=== PATIENT | male | born 1995 ===

== ENCOUNTER 2018-07-20 03:44 | Emergency (ER) | payer BC ==
[~2018-07-20] VITALS: Ht 175.3 cm; Wt 70.8 kg
[~2018-07-20 03:44] MED LIST: AZIT-21 PO; HYDR-229 PO; LEVO500T69 PO; ONDA-42 PO
--- OUTSIDE RECORDS SUMMARY | 2018-07-20 03:47 | XMS REPORT ---
Author Author NANCY DEL VALLE [facility] Address [address] [place] [address] Care Team Providers Care Cell Tower Climber Name Role Phone NANCY DEL VALLE Unavailable PROBLEMS Type Condition ICD9-CM Code ORU21-WY Code Onset Dates Condition Status SNOMED Code Problem Seasonal allergies J30.2 Active 143885304 Problem Mild intermittent asthma without complication J45.20 Active 569024688 Problem Generalized anxiety disorder F41.1 Active 68706071 Problem Major depressive disorder, recurrent episode, severe F33.2 Active 681529543882 Problem Self-mutilation Z72.89 Active 560178242 Problem Constipation, unspecified constipation type K59.00 Active 03559733 ALLERGIES No Known Allergies ENCOUNTERS Encounter Location Date Diagnosis [place] [address] [address] Jul, Mild intermittent asthma without complication J45.20 [facility] [address] [address] Jun, Seasonal allergies J30.2 and Costochondritis M94.0 [place] [address] [address] Mar, Oriana infection B37.9 [place] [address] [address] Apr, Dermatitis L30.9 and Mild intermittent asthma without complication J45.20 [place] [address] [address] May, Scabies B86 [facility] [address] [address] Apr, Constipation, unspecified constipation type K59.00 [facility] [address], [place] [address] Apr, Self-mutilation Z72.89 ; Constipation, unspecified constipation type K59.00 ; Major depressive disorder, recurrent episode, severe F33.2 and Generalized anxiety disorder F41.1 [facility] [address] [address] Dec, Major depressive disorder, recurrent episode, severe F33.2 and Generalized anxiety disorder F41.1 [facility] [address] [address] February, [facility] [address] [place] [id number] [place] [address] February, [facility] [address], [place] [address] Jan, [facility] [address] [place] [id number] [place] [address] Jan, [facility] [address] [address] Nov, [facility] [address] [address] Nov, [facility] [address] [address] Nov, [facility] [address] [address] Nov, [facility] [address], [place] [address] Oct, [facility] [address], [place] [address] Oct, [facility] [address], [place] [address] Oct, [facility] [id number] [place] [address] Oct, [facility] [place] [facility] [address] [id number] [place] [address] Aug, [facility] [place] [facility] [address] [id number] [place] [address] Aug, [facility] [place] [facility] [address] [id number] [place] [address] Aug, [facility] [place] [facility] [address] [id number] [place] [address] Aug, [facility] [place] [facility] [address] [id number] [place] [address] Jun, [facility] [place] [facility] [address] [id number] [place] [address] Jun, [facility] [place] [facility] [address] [id number] [place] [address] Apr, [facility] [place] [facility] [address] [id number] [place] [address] 49[address] Apr, [facility] [place] [facility] [address] [id number] [place] [address] Apr, [facility] [place] [facility] [address] [id number] [place] [address]- 24[address] Apr, [facility] [place] [facility] [address] [id number] [place] [address] Mar, [facility] [place] [facility] [address] [id number] [place] [address] Mar, [facility] [place] [facility] [address] [id number] [place] [address] Mar, [facility] [place] [facility] [address] [id number] [place] [address]- 18[address] Mar, [facility] [place] [facility] [address] [id number] [place] [address] Mar, [facility] [place] [facility] [address] [id number] [place] [address] 8[address] Mar, [facility] [address] [id number] [place] [address] 27[address] Mar, [facility] [place] [facility] [address] [id number] [place] [address] 98[address] Mar, [facility] [place] [facility] [address] [id number] [place] [address]- 1566 Jan, [facility] [place] [facility] [address] [id number] [place] [address]- 7269 Jan, [facility] [place] [facility] [address] [id number] [place] [address] Jan, [facility] [place] [facility] [address] [id number] [place] [address]- 22[address] Jan, [facility] [place] [facility] [address] [id number] [place] [address]- [address] Jan, [facility] [place] [facility] [address] [id number] [place] [address]- [address] Jan, [facility] [place] [facility] [address] [id number] [place] [address]- 24[address] Dec, [facility] [place] [facility] [address] [facility] [id number] [place] [address]- 98[address] Dec, [facility] [place] [facility] [address] [id number] [place] [address]- 78[address] Nov, [facility] [place] [facility] [address] [id number] [place] [address]- 7[address] Nov, [facility] [place] [facility] [address] [id number] [place] [address]- 7796 Nov, [facility] [place] [facility] [address] [facility] [id number] [place] [address]- 4[address] Nov, [facility] [place] [facility] [address] [id number] [place] [address]- 275[address] Nov, [facility] [place] [facility] [address] [id number] [place] [address]- 5607 Nov, [facility] [place] [facility] [address] [id number] [place] [address]- 1046 Oct, [facility] [place] [facility] [address] [id number] [place] [address]- 6[address] Oct, [facility] [place] [facility] [address] [id number] [place] [address]- 5[address] Oct, [facility] [place] [facility] [address] [id number] [place] [address]- 1675 Oct, [facility] [place] [facility] [address] [id number] [place] [address]- 0144 Aug, [facility] [place] [facility] [address] [id number] [place] [address]- 2420 Aug, [facility] [place] [facility] [address] [id number] [address]- [address] Jul, [facility] [place] [facility] [address] [id number] [place] [address]- 23[address] Jul, [facility] [place] [facility] [address] [id number] [place] [address]- 5[address] Jul, [facility] [place] [facility] [address] [id number], [place] [address]- [address] Jun, [facility] [place] [facility] [address] [id number], [place] [address]- [address] 30 Jun, 2013 [facility] [place] [facility] [address] [id number] [place] [address] 25[address] Jan, [facility] [place] [facility] [address] [id number], [place] [address]- [address] Dec, [facility] [place] [facility] [address] [id number] [place] [address]45 Sep, [facility] [place] [facility] [address] [facility] [id number] [place] [address]- 76[address] Aug, [facility] [address] [facility] [id number], [place] [address]- 8[address] Aug, [facility] [address] [facility] [id number], [place] [address]- [address] Sep, [facility] [address] [facility] [id number], [place] [address]- [address] Aug, IMMUNIZATIONS No Known Immunizations SOCIAL HISTORY Never Assessed REASON FOR VISIT congestion-chest congestion, head congestion and stuffy nose x 2 weeks.--MIKAYLA Mejia PLAN OF CARE Activity Details Follow Up prn Reason: VITAL SIGNS Height 70 in 2018-06-25 Weight 152 lbs 2018-06-25 Temperature 98.7 degrees Fahrenheit 2018-06-25 Heart Rate 88 bpm 2018-06-25 Respiratory Rate 20 2018-06-25 BMI 21.81 kg/m2 2018-06-25 Blood pressure systolic 106 mmHg 2018-06-25 Blood pressure diastolic 78 mmHg 2018-06-25 MEDICATIONS Medication Instructions Dosage Frequency Start Date End Date Duration Status Alprazolam 0.25 MG TAKE ONE TABLET BY MOUTH THREE TIMES DAILY NEEDED FOR ANXIETY 30 Active Seroquel 50 MG Orally Once a day 1 tablet at bedtime 24h Active RESULTS No Results PROCEDURES No Known procedures INSTRUCTIONS MEDICATIONS ADMINISTERED No Known Medications MEDICAL (GENERAL) HISTORY Type Description Date Medical History anxiety Surgical History appendectomy Hospitalization History surgeries Hospitalization History breathing difficulties
--- OUTSIDE RECORDS SUMMARY | 2018-07-20 03:48 | XMS REPORT ---
Author Author PILAR CASTILLO Organization [facility] Address [address] [place] [address] Care Team Providers Care Sheeter Machine Operator Name Role Phone PILAR CASTILLO Unavailable PROBLEMS Type Condition ICD9-CM Code RSR59-ND Code Onset Dates Condition Status SNOMED Code Problem Mild intermittent asthma without complication J45.20 Active 087702236 Problem Self-mutilation Z72.89 Active 525614651 Problem Major depressive disorder, recurrent episode, severe F33.2 Active 052846005580 Problem Constipation, unspecified constipation type K59.00 Active 44232695 Problem Generalized anxiety disorder F41.1 Active 16812345 ALLERGIES No Known Allergies ENCOUNTERS Encounter Location Date Diagnosis [place] [address] [address] Mar, Oriana infection B37.9 [place] [address] [address] Apr, Dermatitis L30.9 and Mild intermittent asthma without complication J45.20 [place] [address] [place] [id number] [place] [address] May, Scabies B86 [place] [address] [place] [id number] [place] [address] Apr, Constipation, unspecified constipation type K59.00 [place] [address] [place] [id number] [place] [address] Apr, Self-mutilation Z72.89 ; Constipation, unspecified constipation type K59.00 ; Major depressive disorder, recurrent episode, severe F33.2 and Generalized anxiety disorder F41.1 [place] [address] [address] [place] [id number] [place] [address] Dec, Major depressive disorder, recurrent episode, severe F33.2 and Generalized anxiety disorder F41.1 [facility] [address] [facility] [id number] [place] [address]- [address] February, [facility] [address] [facility] [id number] [place] [address]- [address] February, [facility] [address] [facility] [id number] [place] [address]- 0482 Jan, [facility] [address] [facility] [id number] [place] [address]- 7207 Jan, [facility] [address] [facility] [id number] [place] [address]- 0826 Nov, [facility] [address] [facility] [id number] [place] [address]- 2055 Nov, [facility] [id number] [place] [address]- 64[address] Nov, [facility] [address] [facility] [id number] [place] [address]- 7720 Nov, [facility] [id number] [place] [address]- [address]335 Oct, [facility] [address] [place] [id number] [address]- [address] Oct, [facility] [address] [address]- 0327 Oct, [facility] [address] [facility] [id number] [address]- 2335 Oct, [facility] [address] [facility] [id number] [place] [address]- 6871 Aug, [facility] [address] [facility] [id number] [place] [address]- 9823 Aug, [facility] [address] [place] [id number] [address] Aug, [facility] [place] [facility] [address] [id number] [place] [address]- 3438 Aug, [facility] [place] [facility] [address] [id number] [place] [address]- 7799 Jun, [facility] [place] [facility] [address] [id number] [place] [address]- 5196 Jun, [facility] [place] [facility] [address] [id number] [place] [address]- 9857 Apr, [facility] [place] [facility] [address] [id number] [place] [address]- 8186 Apr, [facility] [place] [facility] [address] [id number] [place] [address]- 5618 Apr, [facility] [place] [facility] [address] [id number] [place] [address]- 7094 Apr, [facility] [place] [facility] [address] [id number] [place] [address]- 3838 Mar, [facility] [place] [facility] [address] [id number] [place] [address]- 3143 Mar, [facility] [place] [facility] [address] [id number] [place] [address]- 8535 Mar, [facility] [place] [facility] [address] [id number] [place] [address]- 4726 Mar, [facility] [place] [facility] [address] [id number] [place] [address]- 1172 Mar, [facility] [place] [facility] [address] [id number] [place] [address]- 0989 Mar, [facility] [place] [facility] [address] [id number] [place] [address]- 8617 Mar, [facility] [place] [facility] [address] [id number] [place] [address]- 4264 Mar, [facility] [place] [facility] [address] [id number] [address]- 7207 Jan, [facility] [place] [facility] [address] [id number] [place] [address]- 1869 Jan, [facility] [place] [facility] [address] [id number] [place] [address] Jan, [facility] [place] [facility] [address] [facility] [id number] [place] [address]- 9500 Jan, [facility] [place] [facility] [address] [id number] [place] [address]- 2986 Jan, [facility] [place] [facility] [address] [id number] [place] [address]- 8850 Jan, [facility] [place] [facility] [address] [facility] [id number] [place] [address]- 5182 Dec, [facility] [place] [facility] [address] [facility] [id number] [place] [address]- 2689 Dec, [facility] [place] [facility] [address] [id number] [place] [address]- [address] Nov, [facility] [place] [facility] [address] [id number] [place] [address]- 9170 Nov, [facility] [place] [facility] [address] [facility] [id number] [place] [address]- 8726 Nov, [facility] [place] [facility] [address] [id number] [place] [address]- 1805 Nov, [facility] [place] [facility] [address] [id number] [address]- 5539 Nov, [facility] [place] [facility] [address] [id number] [place] [address] Nov, [facility] [place] [facility] [address] [facility] [id number] [place] [address] Oct, [facility] [place] [facility] [address] [facility] [id number] [place] [address]- 0781 Oct, [facility] [place] [facility] [address] [id number] [place] [address]- 3847 Oct, [facility] [place] [facility] [address] [id number] [place] [address]- 5010 Oct, [facility] [place] [facility] [address] [id number] [place] [address]- 7795 Aug, [facility] [place] [facility] [address] [id number] [place] [address]- 2459 Aug, [facility] [place] [facility] [address] [id number] [place] [address]- 2736 Jul, [facility] [place] [facility] [address] [id number] [place] [address]- 8341 Jul, [facility] [place] [facility] [address] [id number] [place] [address] Jul, [facility] [place] [facility] [address] [id number] [place] [address]- 8570 Jun, [facility] [place] [facility] [address] [id number] [place] [address]- 4787 Jun, [facility] [place] [facility] [address] [id number] [place] [address]- 2644 Jan, [facility] [place] [facility] [address] [id number] [place] [address]- 5639 Dec, [facility] [place] [facility] [address] [id number] [place] [address]- 4097 Sep, [facility] [place] [facility] [address] [id number] [place] [address]- 1229 Aug, [facility] [place] [facility] [address] [id number] [place] [address]- 0399 Aug, [facility] [place] [facility] [address] [id number] [place] [address]- 2550 Sep, [facility] [place] [facility] [address] [id number] [place] [address]- 4447 Aug, IMMUNIZATIONS No Known Immunizations SOCIAL HISTORY Never Assessed REASON FOR VISIT Male concerns,MIKAYLA martinez, Has burning on the head of his penis, is worse when he has an errections, has not had new partner- PLAN OF CARE Activity Details Follow Up prn Reason: VITAL SIGNS Height 70 in 2018-03-31 Weight 157.4 lbs 2018-03-31 Temperature 98.4 degrees Fahrenheit 2018-03-31 Heart Rate 80 bpm 2018-03-31 Respiratory Rate 18 2018-03-31 BMI 22.58 kg/m2 2018-03-31 Blood pressure systolic 120 mmHg 2018-03-31 Blood pressure diastolic 78 mmHg 2018-03-31 MEDICATIONS Medication Instructions Dosage Frequency Start Date End Date Duration Status Alprazolam 0.25 MG TAKE ONE TABLET BY MOUTH THREE TIMES DAILY NEEDED FOR ANXIETY 30 Active Seroquel 50 MG Orally Once a day 1 tablet at bedtime 24h Active Fluoxetine 40 mg 1 capsule by Oral route 1 time per day Nov, Not-Taking Elimite 5 % Externally once as directed May, Not-Taking Magnesium Citrate 1.745 GM/30ML Orally today only mix with 7 up as directed Apr, Not-Taking Terbinafine 1 % take 1 marcos by Topical route 2 times per day for 30 day(s) Jan, Not-Taking Xyzal 5 mg 1 tablet by Oral route 1 time per day for 5 days Dec, Active Clotrimazole 1 % Externally Twice a day 1 application to affected area 12h Mar, Active ProAir HFA 108 (90 Base) MCG/ACT Inhalation every 4 hrs 2 puffs as needed 4h Apr, 0 days Not-Taking RESULTS No Results PROCEDURES No Known procedures INSTRUCTIONS MEDICATIONS ADMINISTERED No Known Medications MEDICAL (GENERAL) HISTORY Type Description Date Medical History anxiety Surgical History appendectomy Hospitalization History surgeries Hospitalization History breathing difficulties
--- OUTSIDE RECORDS SUMMARY | 2018-07-20 03:48 | XMS REPORT ---
Author Author KENNETH COBURN [facility] [place] eClinical[employer] Address Unknown Phone Unavailable Care Team Providers Care Director Vaccine Name Role Phone KENNETH COBURN CP Unavailable Allergies, Adverse Reactions, Alerts Substance Reaction Event Type N.K.D.A. Info Not Available Non Drug Allergy Problems Problem Type Condition Code Onset Dates Condition Status Assessment Generalized anxiety disorder F41.1 Active Problem Constipation, unspecified constipation type K59.00 Active Problem Major depressive disorder, recurrent episode, severe F33.2 Active Problem Self-mutilation Z72.89 Active Assessment Constipation, unspecified constipation type K59.00 Active Assessment Major depressive disorder, recurrent episode, severe F33.2 Active Problem Generalized anxiety disorder F41.1 Active Assessment Self-mutilation Z72.89 Active Medications Medication Code System Code Instructions Start Date End Date Status Dosage Bentyl [facility] [address]-02 10 mg Orally Four times a day April 25, 2016 May 25, 2016 1 capsule Colace [facility] [address]-64 100 MG Orally Once a day April 25, 2016 May 25, 2016 1 capsule as needed Magnesium Citrate [facility] [address]-89 1.745 GM/30ML Orally today only mix with 7 up April 25, 2016 as directed Seroquel [facility] [address]-04 50 MG Orally not defined Alprazolam [facility] 57465173791 0.25 MG TAKE ONE TABLET BY MOUTH THREE TIMES DAILY NEEDED FOR ANXIETY Procedures Procedure Coding System Code Date COMPREHEN METABOLIC PANEL CPT-4 02684 April 25, 2016 X-RAY EXAM OF ABDOMEN CPT-4 35428 April 25, 2016 COMPLETE CBC W/AUTO DIFF WBC CPT-4 98486 April 25, 2016 VENIPUNCT, ROUTINE* CPT-4 80667 April 25, 2016 Office Visit, Est Pt., Level 4 CPT-4 03546 April 25, 2016 Vital Signs Date/Time: April 25, 2016 Cardiac Monitoring Heart Rate 84 bpm Weight 156.5 lbs Height 70 in Blood Pressure Diastolic 84 mmHg Blood Pressure Systolic 126 mmHg Results No Known Results Summary Purpose eClinicalWorks Submission
--- OUTSIDE RECORDS SUMMARY | 2018-07-20 03:48 | XMS REPORT ---
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 Active 759898679 Problem Major depressive disorder, recurrent episode, severe F33.2 Active 286816044943 Problem Constipation, unspecified constipation type K59.00 Active 76803062 Problem Generalized anxiety disorder F41.1 Active 73337367 ALLERGIES No Known Allergies ENCOUNTERS Encounter Location Date Diagnosis [place] [address] [address] Apr, Dermatitis L30.9 and Mild intermittent asthma without complication J45.20 [place] [address] [address] May, Scabies B86 [place] [address] [address] [place] [id number] [place] [address] Apr, Constipation, unspecified constipation type K59.00 [place] [address] [address] [place] [id number] [place] [address] Apr, Self-mutilation Z72.89 ; Constipation, unspecified constipation type K59.00 ; Major depressive disorder, recurrent episode, severe F33.2 and Generalized anxiety disorder F41.1 [place] [address] [address] Dec, Major depressive disorder, recurrent episode, severe F33.2 and Generalized anxiety disorder F41.1 [place] [address] [address] February, [facility] [place] [facility] [address] [id number] [place] [address] February, [facility] [place] [facility] [address] [id number] [place] [address] Jan, [facility] [place] [facility] [address] [id number] [place] [address] 3[address] Jan, [facility] [place] [facility] [address] [id number] [place] [address] Nov, [facility] [place] [facility] [address] [id number] [place] [address] Nov, [facility] [place] [facility] [address] [id number] [place] [address] Nov, [facility] [place] [facility] [address] [id number] [place] [address] Nov, [facility] [place] [facility] [address] [id number] [place] [address] Oct, [facility] [place] [facility] [address] [id number] [place] [address]- 9[address] Oct, [facility] [place] [facility] [address] [id number] [place] [address] Oct, [facility] [place] [facility] [address] [id number], [place] [address] Oct, [facility] [place] [facility] [address] [id number], [place] [address] Aug, [facility] [place] [facility] [address] [id number] [place] [address] Aug, [facility] [place] [facility] [address] [id number] [place] [address]- 0581 Aug, [facility] [place] [facility] [address] [id number] [place] [address]- 7284 Aug, [facility] [place] [facility] [address] [id number] [place] [address]- [address]16 Jun, [facility] [place] [facility] [address] [id number] [place] [address]- 9427 Jun, [facility] [place] [facility] [address] [id number] [place] [address]- 5[address] Apr, [facility] [place] [facility] [address] [id number] [place] [address]- 7140 Apr, [facility] [place] [facility] [address] [id number] [place] [address]- 98[address] Apr, [facility] [place] [facility] [address] [id number] [place] [address]- [address] Apr, [facility] [place] [facility] [address] [id number] [place] [address] 23[address] Mar, [facility] [place] [facility] [address] [id number] [place] [address]- 4152 Mar, [facility] [place] [facility] [address] [id number] [place] [address]- 3860 Mar, [facility] [place] [facility] [address] [id number] [place] [address]- 160[address] Mar, [facility] [place] [facility] [address] [id number] [place] [address]- 0[address] Mar, [facility] [place] [facility] [address] [id number] [place] [address]- 4[address] Mar, [facility] [place] [facility] [address] [id number] [place] [address]- 9[address] Mar, [facility] [place] [facility] [address] [id number] [place] [address]- 36[address] Mar, [facility] [place] [facility] [address] [id number] [place] [address]- 32[address] Jan, [facility] [place] [facility] [address] [id number] [place] [address]- 75[address] Jan, [facility] [place] [facility] [address] [id number] [place] [address]- 32[address] Jan, [facility] [place] [facility] [address] [id number] [place] [address]- 2799 Jan, [facility] [place] [facility] [address] [id number] [place] [address]- 1268 Jan, [facility] [place] [facility] [address] [id number] [place] [address]- 0164 Jan, [facility] [place] [facility] [address] [id number] [place] [address]- 3[address] Dec, [facility] [place] [facility] [address] [id number] [place] [address]- 3928 Dec, [facility] [place] [facility] [address] [facility] [id number] [place] [address]- 0212 Nov, [facility] [place] [facility] [address] [id number] [place] [address]- 69[address] Nov, [facility] [place] [facility] [address] [id number] [place] [address]- 0886 Nov, [facility] [place] [facility] [address] [facility] [id number] [place] [address]- 69[address] Nov, [facility] [place] [facility] [address] [id number] [place] [address]- 488[address] Nov, [facility] [place] [facility] [address] [id number] [place] [address]- 3697 Nov, [facility] [place] [facility] [address] [id number] [place] [address]- 9292 Oct, [facility] [place] [facility] [address] [id number] [place] [address]- 7150 Oct, [facility] [place] [facility] [address] [facility] [id number] [place] [address]- 1682 Oct, [facility] [place] [facility] [address] [address] Oct, [facility] [address] [address] Aug, [facility] [address] [id number] [address] Aug, [facility] [address], [place] [address]- [address] Jul, [facility] [address] [facility] [id number], [place] [address]- 47[address] Jul, [facility] [id number] [place] [address]- [address] Jul, [facility] [address] [address] Jun, [facility] [address], [place] [address]- [address] Jun, [facility] [address], [place] [address]- 16[address] Jan, [facility] [address] [address] Dec, [facility] [address], [place] [address]- 0[address] Sep, [facility] [address], [place] [address]- 84[address] Aug, [facility] [address] [id number], [place] [address]- 4[address] Aug, [facility] [address] [address] Sep, [facility] [address] [address] 24 Aug, 2008 IMMUNIZATIONS No Known Immunizations SOCIAL HISTORY Never Assessed REASON FOR VISIT Rash on several areas of his body x 1 month. Itches occasionally. , Pt was asthmatic when he was little and now states that after very little activity that he is short of breath. Would like to discuss options. CHERRY Valera PLAN OF CARE Activity Details Follow Up prn Reason: VITAL SIGNS Height 70 in 2017-04-29 Weight 157 lbs 2017-04-29 Temperature 97.9 degrees Fahrenheit 2017-04-29 Heart Rate 82 bpm 2017-04-29 Respiratory Rate 18 2017-04-29 BMI 22.52 kg/m2 2017-04-29 Blood pressure systolic 100 mmHg 2017-04-29 Blood pressure diastolic 70 mmHg 2017-04-29 MEDICATIONS Medication Instructions Dosage Frequency Start Date End Date Duration Status ProAir HFA 108 (90 Base) MCG/ACT Inhalation every 4 hrs 2 puffs as needed 4h Apr, 0 days Active Alprazolam 0.25 MG TAKE ONE TABLET BY MOUTH THREE TIMES DAILY NEEDED FOR ANXIETY 30 Active Elimite 5 % Externally once as directed May, Active Seroquel 50 MG Orally Once a day 1 tablet at bedtime 24h Active RESULTS No Results PROCEDURES No Known procedures INSTRUCTIONS MEDICATIONS ADMINISTERED No Known Medications MEDICAL (GENERAL) HISTORY Type Description Date Medical History anxiety Surgical History appendectomy Hospitalization History surgeries Hospitalization History breathing difficulties
--- OUTSIDE RECORDS SUMMARY | 2018-07-20 03:48 | XMS REPORT ---
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 Active 015758003 Problem Constipation, unspecified constipation type K59.00 Active 49833284 ALLERGIES No Information ENCOUNTERS Encounter Location Date Diagnosis [facility] [address] [address] Jul, Mild intermittent asthma without complication J45.20 [facility] [address] [address] Jun, Seasonal allergies J30.2 and Costochondritis M94.0 [facility] [address] [place] [id number] [place] [address] Mar, Oriana infection B37.9 [facility] [address] [address] Apr, Dermatitis L30.9 and Mild intermittent asthma without complication J45.20 [facility] [address] [address] May, Scabies B86 [facility] [address] [address] Apr, Constipation, unspecified constipation type K59.00 [facility] [address] [id number] [address] Apr, Self-mutilation Z72.89 ; Constipation, unspecified constipation type K59.00 ; Major depressive disorder, recurrent episode, severe F33.2 and Generalized anxiety disorder F41.1 [facility] [address] Dec, Major depressive disorder, recurrent episode, severe F33.2 and Generalized anxiety disorder F41.1 [facility] [address] February, [facility] [id number] [place] [address]- [address] February, [facility] [address], [place] [address]- [address] Jan, [facility] [id number] [place] [address]- [address] Jan, [facility] [address], [place] [address]- [address] Nov, [facility] [address], [place] [address]- 99[address] Nov, [facility] [address], [place] [address]- [address] Nov, [facility] [address], [place] [address]- 47[address] Nov, [facility] [address], [place] [address]- 1437 Oct, [facility] [address] [address] Oct, [facility] [address] [address] Oct, [facility] [address] [address] Oct, [facility] [place] [facility] [address] [id number] [place] [address]- 7697 Aug, [facility] [place] [facility] [address] [id number] [place] [address]- 8393 Aug, [facility] [place] [facility] [address] [id number] [place] [address]- 0582 Aug, [facility] [place] [facility] [address] [id number] [place] [address]- 7205 Aug, [facility] [place] [facility] [address] [id number] [place] [address]- 9326 Jun, [facility] [place] [facility] [address] [id number] [place] [address]- 8040 Jun, [facility] [place] [facility] [address] [id number] [place] [address]- 1687 Apr, [facility] [place] [facility] [address] [id number] [place] [address]- 6276 Apr, [facility] [place] [facility] [address] [id number] [place] [address]- 8173 Apr, [facility] [place] [facility] [address] [id number] [place] [address]- 9597 Apr, [facility] [place] [facility] [address] [id number] [place] [address]- 9032 Mar, [facility] [place] [facility] [address] [id number] [place] [address]- 2010 Mar, [facility] [place] [facility] [address] [id number] [place] [address]- 3380 Mar, [facility] [place] [facility] [address] [id number] [place] [address]- 9703 Mar, [facility] [place] [facility] [address] [id number] [place] [address]- 9541 Mar, [facility] [place] [facility] [address] [id number], [place] [address]- 3011 Mar, [facility] [place] [facility] [address] [id number] [place] [address]- 6623 Mar, [facility] [place] [facility] [address] [id number] [place] [address]- 1708 Mar, [facility] [place] [facility] [address] [facility] [id number] [place] [address]- 8242 Jan, [facility] [place] [facility] [address] [id number] [place] [address]- 6126 Jan, [facility] [place] [facility] [address] [id number] [place] [address]- 5801 Jan, [facility] [place] [facility] [address] [facility] [id number] [place] [address]- 2304 Jan, [facility] [place] [facility] [address] [facility] [id number] [place] [address]- 3646 Jan, [facility] [place] [facility] [address] [facility] [id number] [place] [address]- 5747 Jan, [facility] [place] [facility] [address] [facility] [id number] [place] [address]- 1062 Dec, [facility] [place] [facility] [address] [facility] [id number] [place] [address]- 8189 Dec, [facility] [place] [facility] [address] [id number], [place] [address]- 7004 Nov, [facility] [place] [facility] [address] [id number], [place] [address]- 9153 Nov, [facility] [place] [facility] [address] [id number] [place] [address]- 9918 Nov, [facility] [place] [facility] [address] [id number], [place] [address]- 3502 Nov, [facility] [place] [facility] [address] [facility] [id number], [place] [address]- 9056 Nov, [facility] [place] [facility] [address] [id number] [place] [address]- 8411 Nov, [facility] [place] [facility] [address] [id number] [place] [address]- 1877 Oct, [facility] [place] [facility] [address] [id number] [place] [address]- 5507 Oct, [facility] [place] [facility] [address] [id number] [place] [address]- 3598 Oct, [facility] [place] [facility] [address] [id number] [place] [address]- 6498 Oct, [facility] [place] [facility] [address] [id number] [place] [address]- 3575 Aug, [facility] [place] [facility] [address] [id number] [place] [address]- 2350 Aug, [facility] [place] [facility] [address] [id number] [place] [address]- 7814 Jul, [facility] [place] [facility] [address] [id number] [place] [address]- 8134 Jul, [facility] [place] [facility] [address] [id number] [place] [address]- 6412 Jul, [facility] [place] [facility] [address] [id number] [place] [address]- 8801 Jun, [facility] [place] [facility] [address] [id number], [place] [address]- [address] 30 Jun, 2013 [facility] [place] [facility] [address] [id number] [place] [address]- 1590 Jan, [facility] [place] [facility] [address] [id number] [place] [address]- 8707 Dec, [facility] [place] [facility] [address] [id number] [place] [address]- 8243 Sep, [facility] [place] [facility] [address] [id number] [place] [address]- 2546 Aug, [facility] [address] [facility] [id number] [place] [address]- 9796 Aug, [facility] [address] [facility] [id number], [place] [address]- 0[address] Sep, [facility] [address] [facility] [id number], [place] [address]- 06[address] Aug, IMMUNIZATIONS No Known Immunizations SOCIAL HISTORY Never Assessed REASON FOR VISIT Medication refill request PLAN OF CARE VITAL SIGNS MEDICATIONS Medication Instructions Dosage Frequency Start Date End Date Duration Status ProAir HFA 108 (90 Base) MCG/ACT Inhalation every 4 hrs 2 puffs as needed 4h Apr, 0 days Active RESULTS No Results PROCEDURES No Known procedures INSTRUCTIONS MEDICATIONS ADMINISTERED No Known Medications MEDICAL (GENERAL) HISTORY Type Description Date Medical History anxiety Surgical History appendectomy Hospitalization History surgeries Hospitalization History breathing difficulties
--- OUTSIDE RECORDS SUMMARY | 2018-07-20 03:48 | XMS REPORT | Continuity of Care Document ---
Author Author [facility] Organization [facility] Address Unknown Phone Unavailable Care Team Providers Care Process Automation Engineer Name Role Phone [facility] Insurance Providers Payer Name Policy Number Subscriber Name Relationship [employer] [id number] Axel Schuster 01 Self / Same As Patient Advance Directives Directive Response Recorded Date Advance Directives N 07/05/13 4:18pm Health Care Power of Wood Boring Machine Operator N 07/05/13 4:18pm Organ Donor N 07/05/13 4:18pm Problems No Known Problems or Medical conditions. Social History History Response Recorded Date/Time Alcohol Use Denies Use 07/05/13 4:18pm Recreational Drug Use N 07/05/13 4:18pm Allergies, Adverse Reactions, Alerts Allergen Type Severity Reaction Last Updated No Known Drug Allergies 06/05/10 Medications Medication Dose Units Route Sig Qty Days Ondansetron Hcl (Zofran Oral Dissolve) 4 Mg PO Q4H PRN 10 Levofloxacin (Levaquin 500 Mg) 1 Each PO DAILY 10 Azithromycin (Zithromax Tab) 0 PO Z-DAVID 6 Response Recorded Date/Time Status not known Unknown Results Test Date Result Interp. Ref. Range Alanine Aminotransferase (ALT/SGPT) March 29, 2013 7:13pm 29 U/L L 30-65 Albumin March 29, 2013 7:13pm 4.6 G/DL N 3.4-5.0 Alkaline Phosphatase March 29, 2013 7:13pm 94 U/L N 50-136 Aspartate Amino Transf (AST/SGOT) March 29, 2013 7:13pm 14 U/L L 15-37 BUN/Creatinine Ratio March 29, 2013 7:13pm 17 - Band Neutrophils March 29, 2013 7:13pm 3 % - Basophils # (Auto) March 29, 2013 7:13pm 0.0 10^3/uL N 0.0-0.1 Basophils % (Manual) March 29, 2013 7:13pm 0 % - Basophils (%) (Auto) March 29, 2013 7:13pm 0 % N 0-10 Blood Urea Nitrogen March 29, 2013 7:13pm 17 MG/DL N 7-18 Calcium Level March 29, 2013 7:13pm 8.9 MG/DL N 8.5-10.1 Carbon Dioxide Level March 29, 2013 7:13pm 27 MMOL/L N 21-32 Chloride Level March 29, 2013 7:13pm 100 MMOL/L L 101-110 Creatinine March 29, 2013 7:13pm 1.0 MG/ DL N 0.6-1.3 Eosinophils # (Auto) March 29, 2013 7:13pm 0.1 10^3/uL N 0.0-0.3 Eosinophils % (Manual) March 29, 2013 7:13pm 0 % - Eosinophils (%) (Auto) March 29, 2013 7:13pm 1 % N 0-10 Glucose Level March 29, 2013 7:13pm 163 MG/DL H 74-106 Hematocrit March 29, 2013 7:13pm 41 % N 40-54 Hemoglobin March 29, 2013 7:13pm 14.7 G/ DL N 13.3-17.7 Lymphocytes # (Auto) March 29, 2013 7:13pm 0.8 X 10^3 L 1.0-4.0 Lymphocytes % (Manual) March 29, 2013 7:13pm 5 % - Lymphocytes (%) (Auto) March 29, 2013 7:13pm 6 % L 12-44 Magnesium Level June 06, 2010 5:54am 1.6 MG/DL L 1.8-2.4 Mean Corpuscular Hemoglobin March 29, 2013 7:13pm 30 PG N 25-34 Mean Corpuscular Hemoglobin Concent March 29, 2013 7:13pm 36 G/DL N 32-36 Mean Corpuscular Volume March 29, 2013 7:13pm 84 FL N 80-99 Mean Platelet Volume March 29, 2013 7:13pm 10.1 FL N 7.4-10.4 Monocytes # (Auto) March 29, 2013 7:13pm 0.2 X 10^3 N 0.0-1.0 Monocytes % (Manual) March 29, 2013 7:13pm 1 % - Monocytes (%) (Auto) March 29, 2013 7:13pm 1 % N 0-12 Neutrophils # (Auto) March 29, 2013 7:13pm 12.8 X 10^3 H 1.8-7.8 Neutrophils % (Manual) March 29, 2013 7:13pm 88 % - Neutrophils (%) (Auto) March 29, 2013 7:13pm 92 % H 42-75 Platelet Count March 29, 2013 7:13pm 208 10^3/uL N 130-400 Poikilocytosis March 29, 2013 7:13pm SLIGHT - Potassium Level March 29, 2013 7:13pm 3.3 MMOL/L L 3.6-5.0 Reactive Lymphocytes March 29, 2013 7:13pm 3 % - Red Blood Count March 29, 2013 7:13pm 4.91 10^6/uL N 4.35-5.85 Red Cell Distribution Width March 29, 2013 7:13pm 13.4 % N 10.0-14.5 Sodium Level March 29, 2013 7:13pm 137 MMOL/L N 135-145 Total Bilirubin March 29, 2013 7:13pm 2.2 MG/DL H 0.0-1.0 Total Protein March 29, 2013 7:13pm 8.1 G /DL N 6.4-8.2 Toxic Granulation March 29, 2013 7:13pm 1 + - Urine Amorphous Sediment June 05, 2010 7:00am FEW TASHIA URATES H - Urine Bacteria March 29, 2013 7:28pm NEGATIVE /HPF - Urine Bilirubin March 29, 2013 7:28pm NEGATIVE - Urine Casts March 29, 2013 7:28pm NONE / LPF - Urine Clarity March 29, 2013 7:28pm SLIGHTLY CLOUDY - Urine Color March 29, 2013 7:28pm YELLOW - Urine Crystals March 29, 2013 7:28pm NONE /LPF - Urine Culture Indicated March 29, 2013 7:28pm YES - Urine Glucose (UA) March 29, 2013 7:28pm NEGATIVE - Urine Ketones March 29, 2013 7:28pm 3+ H - Urine Leukocyte Esterase March 29, 2013 7:28pm 1+ H - Urine Mucus March 29, 2013 7:28pm LARGE / LPF H - Urine Nitrite March 29, 2013 7:28pm NEGATIVE - Urine Protein March 29, 2013 7:28pm 2+ H - Urine RBC March 29, 2013 7:28pm 0-2 /HPF - Urine Specific [place] March 29, 2013 7:28pm 1.025 H - Urine Squamous Epithelial Cells March 29, 2013 7:28pm NONE /HPF - Urine Urobilinogen March 29, 2013 7:28pm NORMAL MG/DL - Urine WBC March 29, 2013 7:28pm 0-2 /HPF - Urine pH March 29, 2013 7:28pm 5 - White Blood Count March 29, 2013 7:13pm 13.9 10^3/uL H 4.3-11.0 Estimat Glomerular Filtration Rate March 29, 2013 7:13pm > 60 - Urine RBC (Auto) March 29, 2013 7:28pm 1+ H - Procedures Procedure Code Date LAPAROSCOP APPENDECTOMY 47.01 06/05/10 MRSA Screen 06/05/10 Urine Culture 03/29/13 Encounters Encounter Location Date/Time Registered Emergency Room [facility] 07/05/13 4:04pm Departed Emergency Room [facility] 6:52pm Discharged Inpatient [facility] 4:10pm
--- OUTSIDE RECORDS SUMMARY | 2018-07-20 03:48 | XMS REPORT | Continuity of Care Document ---
Author Author [facility] Organization [facility] Address Unknown Phone Unavailable Care Team Providers Care Collection Correspondent Name Role Phone [facility] OF Insurance Providers Payer Name Policy Number Subscriber Name Relationship [employer] [id number] Axel Schuster 01 Self / Same As Patient Advance Directives Directive Response Recorded Date Advance Directives N 03/29/13 7:06pm Problems No Known Problems or Medical conditions. Social History History Response Recorded Date/Time Alcohol Use Denies Use 03/29/13 7:06pm Recreational Drug Use N 03/29/13 7:06pm Allergies, Adverse Reactions, Alerts Allergen Type Severity Reaction Last Updated No Known Drug Allergies 06/05/10 Medications Medication Dose Units Route Sig Qty Days Azithromycin (Zithromax Tab) 0 PO Z-DAVID 6 Response Recorded Date/Time Status not known Unknown Results No Known Relevant Diagnostic Tests, Laboratory Data and/or Discharge Summary. Procedures Procedure Code Date LAPAROSCOP APPENDECTOMY 47.01 06/05/10 Encounters Encounter Location Date/Time Departed Emergency Room [facility] 6:52pm [facility] 4:10pm
--- OUTSIDE RECORDS SUMMARY | 2018-07-20 03:49 | XMS REPORT | Continuity of Care Document ---
Author Author [facility] Address Unknown Phone Unavailable Allergies Active Description Code Type Severity Reaction Onset Reported/Identified Relationship to Patient Clinical Status Yes No Known Drug Allergies [id number] Drug Allergy Unknown N/A 06/05/2010 Medications There is no data. Problems Date Dx Coded Attending Type Code Diagnosis Diagnosed By 08/29/2008 380.4 CERUMEN IMPACTION 08/29/2008 466.0 BRONCHITIS, ACUTE 08/29/2008 ELENA DO, DEO K 380.4 CERUMEN IMPACTION 08/29/2008 ELENA DO, DEO K 466.0 BRONCHITIS, ACUTE 08/29/2008 ELENA DO DEO K 380.4 CERUMEN IMPACTION 08/29/2008 ELENA DO, DEO K 466.0 BRONCHITIS, ACUTE 08/29/2008 JESSIE CASTING MOLDER, CLAUDIO A 380.4 CERUMEN IMPACTION 08/29/2008 JESSIE CASTING MOLDER, CLAUDIO A 466.0 BRONCHITIS, ACUTE 08/29/2008 VALERIO CASTING MOLDER, MARE R 380.4 CERUMEN IMPACTION 08/29/2008 VALERIO CASTING MOLDER, MARE R 466.0 BRONCHITIS, ACUTE 08/29/2008 DIEGO BOWDEN PHD 380.4 CERUMEN IMPACTION 08/29/2008 DIEGO BOWDEN PHD 466.0 BRONCHITIS, ACUTE 08/29/2008 DIEGO BOWDEN PHD 380.4 CERUMEN IMPACTION 08/29/2008 DIEGO BOWDEN PHD 466.0 BRONCHITIS, ACUTE 08/29/2008 JANIE TORRES APRN 380.4 CERUMEN IMPACTION 08/29/2008 JANIE TORRES APRN 466.0 BRONCHITIS, ACUTE 08/29/2008 DIEGO BOWDEN PHD 380.4 CERUMEN IMPACTION 08/29/2008 DIEGO BOWDEN PHD 466.0 BRONCHITIS, ACUTE 08/29/2008 DIEGO BOWDEN PHD 380.4 CERUMEN IMPACTION 08/29/2008 DIEGO BOWDEN PHD 466.0 BRONCHITIS, ACUTE 08/29/2008 VALERIO CASTING MOLDER, MARE R 380.4 CERUMEN IMPACTION 08/29/2008 VALERIO DIAZN, MARE R 466.0 BRONCHITIS, ACUTE 08/29/2008 DIEGO BOWDEN PHD 380.4 CERUMEN IMPACTION 08/29/2008 DIEGO BOWDEN PHD 466.0 BRONCHITIS, ACUTE 08/29/2008 MADL CASTING MOLDER, QUANG L 380.4 CERUMEN IMPACTION 08/29/2008 MADL CASTING MOLDER, QUANG L 466.0 BRONCHITIS, ACUTE 08/29/2008 DIEGO BOWDEN PHD 380.4 CERUMEN IMPACTION 08/29/2008 DIEGO BOWDEN PHD 466.0 BRONCHITIS, ACUTE 09/16/2008 478.19 OTHER DISEASES OF NASAL CAVITY AND SINUSES 09/16/2008 486 PNEUMONIA UNSPECIFIED 09/16/2008 786.2 COUGH 09/16/2008 ELENA DO, DEO K 478.19 OTHER DISEASES OF NASAL CAVITY AND SINUSES 09/16/2008 ELENA DO, DEO K 486 PNEUMONIA UNSPECIFIED 09/16/2008 ELENA DO, DEO K 786.2 COUGH 09/16/2008 ELENA DO, DEO K 478.19 OTHER DISEASES OF NASAL CAVITY AND SINUSES 09/16/2008 ELENA DO, DEO K 486 PNEUMONIA UNSPECIFIED 09/16/2008 ELENA DO, DEO K 786.2 COUGH 09/16/2008 JESSIE COBIAN, CLAUDIO A 478.19 OTHER DISEASES OF NASAL CAVITY AND SINUSES 09/16/2008 JESSIE COBIAN, CLAUDIO A 486 PNEUMONIA UNSPECIFIED 09/16/2008 JESSIE APRN, CLAUDIO A 786.2 COUGH 09/16/2008 VALERIO COBIAN, MARE R 478.19 OTHER DISEASES OF NASAL CAVITY AND SINUSES 09/16/2008 VALERIO DIAZN, MARE R 486 PNEUMONIA UNSPECIFIED 09/16/2008 VALERIO COBIAN, MARE R 786.2 COUGH 09/16/2008 DIEGO BOWDEN PHD 478.19 OTHER DISEASES OF NASAL CAVITY AND SINUSES 09/16/2008 DIEGO BOWDEN PHD 486 PNEUMONIA UNSPECIFIED 09/16/2008 DIEGO BOWDEN PHD 786.2 COUGH 09/16/2008 DIEGO BOWDEN PHD 478.19 OTHER DISEASES OF NASAL CAVITY AND SINUSES 09/16/2008 DIEGO BOWDEN PHD 486 PNEUMONIA UNSPECIFIED 09/16/2008 DIEGO BOWDEN PHD 786.2 COUGH 09/16/2008 JANIE TORRES APRN 478.19 OTHER DISEASES OF NASAL CAVITY AND SINUSES 09/16/2008 JANIE TORRES APRN 486 PNEUMONIA UNSPECIFIED 09/16/2008 BRIAN DIAZNJANIE 786.2 COUGH 09/16/2008 DIEGO BOWDEN PHD 478.19 OTHER DISEASES OF NASAL CAVITY AND SINUSES 09/16/2008 DIEGO BOWDEN PHD 486 PNEUMONIA UNSPECIFIED 09/16/2008 DIEGO BOWDEN PHD 786.2 COUGH 09/16/2008 DIEGO BOWDEN PHD 478.19 OTHER DISEASES OF NASAL CAVITY AND SINUSES 09/16/2008 DIEGO BOWDEN PHD 486 PNEUMONIA UNSPECIFIED 09/16/2008 DIEGO BOWDEN PHD 786.2 COUGH 09/16/2008 VALERIO COBIAN MARE R 478.19 OTHER DISEASES OF NASAL CAVITY AND SINUSES 09/16/2008 VALERIO COBIAN MARE R 486 PNEUMONIA UNSPECIFIED 09/16/2008 VALERIO COBIAN MARE R 786.2 COUGH 09/16/2008 DIGEO BOWDEN PHD 478.19 OTHER DISEASES OF NASAL CAVITY AND SINUSES 09/16/2008 DIEGO BOWDEN PHD 486 PNEUMONIA UNSPECIFIED 09/16/2008 DIEGO BOWDEN PHD 786.2 COUGH 09/16/2008 QUANG SANTIAGO APRN L 478.19 OTHER DISEASES OF NASAL CAVITY AND SINUSES 09/16/2008 MADFLORENTIN Davis APRNA L 486 PNEUMONIA UNSPECIFIED 09/16/2008 MADSusan COBIAN QUANG L 786.2 COUGH 09/16/2008 DIEGO BOWDEN PHD 478.19 OTHER DISEASES OF NASAL CAVITY AND SINUSES 09/16/2008 DIEGO BOWDEN PHD 486 PNEUMONIA UNSPECIFIED 09/16/2008 DIEGO BOWDEN PHD 786.2 COUGH 07/13/2009 922.2 CONTUSION OF TRUNK, ABDOMINAL WALL 07/13/2009 DEO ELENA DO K 922.2 CONTUSION OF TRUNK, ABDOMINAL WALL 07/13/2009 ELENA DEO JAVED K 922.2 CONTUSION OF TRUNK, ABDOMINAL WALL 07/13/2009 CLAUDIO ROMAN APRN 922.2 CONTUSION OF TRUNK, ABDOMINAL WALL 07/13/2009 VALERIO DIAZN, MARE R 922.2 CONTUSION OF TRUNK, ABDOMINAL WALL 07/13/2009 KAL RIVERA, DIEGO D 922.2 CONTUSION OF TRUNK, ABDOMINAL WALL 07/13/2009 KAL RIVERA, DIEGO D 922.2 CONTUSION OF TRUNK, ABDOMINAL WALL 07/13/2009 BRIAN COBIAN JANIE GONZALEZH 922.2 CONTUSION OF TRUNK, ABDOMINAL WALL 07/13/2009 KAL RIVERA, DIEGO D 922.2 CONTUSION OF TRUNK, ABDOMINAL WALL 07/13/2009 KAL RVIERA, DIEGO D 922.2 CONTUSION OF TRUNK, ABDOMINAL WALL 07/13/2009 VALERIO CASTING MOLDER, MARE R 922.2 CONTUSION OF TRUNK, ABDOMINAL WALL 07/13/2009 KAL , DIEGO D 922.2 CONTUSION OF TRUNK, ABDOMINAL WALL 07/13/2009 PAMELA COBIAN, QUANG L 922.2 CONTUSION OF TRUNK, ABDOMINAL WALL 07/13/2009 KAL RIVERA, DIEGO D 922.2 CONTUSION OF TRUNK, ABDOMINAL WALL 08/07/2009 519.19 OTHER DISEASES OF TRACHEA AND BRONCHUS, NOT ELSEWHERE CLASSIFIED, OTHER 08/07/2009 ELENA DO, DEO K 519.19 OTHER DISEASES OF TRACHEA AND BRONCHUS, NOT ELSEWHERE CLASSIFIED, OTHER 08/07/2009 ELENA DO, DEO K 519.19 OTHER DISEASES OF TRACHEA AND BRONCHUS, NOT ELSEWHERE CLASSIFIED, OTHER 08/07/2009 CLAUDIO ROMAN APRN 519.19 OTHER DISEASES OF TRACHEA AND BRONCHUS, NOT ELSEWHERE CLASSIFIED, OTHER 08/07/2009 BRIANA LUO APRNINA R 519.19 OTHER DISEASES OF TRACHEA AND BRONCHUS, NOT ELSEWHERE CLASSIFIED, OTHER 08/07/2009 DIEGO BOWDEN PHD 519.19 OTHER DISEASES OF TRACHEA AND BRONCHUS, NOT ELSEWHERE CLASSIFIED, OTHER 08/07/2009 DIEGO BOWDEN PHD 519.19 OTHER DISEASES OF TRACHEA AND BRONCHUS, NOT ELSEWHERE CLASSIFIED, OTHER 08/07/2009 JANIE TORRES APRN 519.19 OTHER DISEASES OF TRACHEA AND BRONCHUS, NOT ELSEWHERE CLASSIFIED, OTHER 08/07/2009 DIEGO BOWDEN PHD 519.19 OTHER DISEASES OF TRACHEA AND BRONCHUS, NOT ELSEWHERE CLASSIFIED, OTHER 08/07/2009 DIEGO BOWDEN PHD 519.19 OTHER DISEASES OF TRACHEA AND BRONCHUS, NOT ELSEWHERE CLASSIFIED, OTHER 08/07/2009 VALERIO CASTING MOLDER, MARE R 519.19 OTHER DISEASES OF TRACHEA AND BRONCHUS, NOT ELSEWHERE CLASSIFIED, OTHER 08/07/2009 KAL RIVERA, DIEGO Comer 519.19 OTHER DISEASES OF TRACHEA AND BRONCHUS, NOT ELSEWHERE CLASSIFIED, OTHER 08/07/2009 PAMELA DIAZN, QUANG Susan 519.19 OTHER DISEASES OF TRACHEA AND BRONCHUS, NOT ELSEWHERE CLASSIFIED, OTHER 08/07/2009 KAL RIVERA, DIEGO Comer 519.19 OTHER DISEASES OF TRACHEA AND BRONCHUS, NOT ELSEWHERE CLASSIFIED, OTHER 01/01/2010 V05.4 VARICELLA, CHICKENPOX 01/01/2010 V06.5 DT, TETANUS- DIPHTHERIA [Td] ,TDAP 01/01/2010 ELENA DO, DEO K V05.4 VARICELLA, CHICKENPOX 01/01/2010 ELENA DO, DEO K V06.5 DT, TETANUS-DIPHTHERIA [Td] ,TDAP 01/01/2010 ELENA DO, DEO K V05.4 VARICELLA, CHICKENPOX 01/01/2010 ELENA DO DEO K V06.5 DT, TETANUS-DIPHTHERIA [Td] ,TDAP 01/01/2010 JESSIE DIAZN, CLAUDIO A V05.4 VARICELLA, CHICKENPOX 01/01/2010 JESSIEZAC DIAZN, CLAUDIO A V06.5 DT, TETANUS-DIPHTHERIA [Td] ,TDAP 01/01/2010 VALERIO DIAZN, MRAE R V05.4 VARICELLA, CHICKENPOX 01/01/2010 VALERIO DIAZN, MARE R V06.5 DT, TETANUS-DIPHTHERIA [Td] ,TDAP 01/01/2010 KAL RIVERA, DIEGO Comer V05.4 VARICELLA, CHICKENPOX 01/01/2010 KAL RIVERA, DIEGO Comer V06.5 DT, TETANUS-DIPHTHERIA [Td] ,TDAP 01/01/2010 KAL RIVERA, DIEGO Comer V05.4 VARICELLA, CHICKENPOX 01/01/2010 KAL RIVERA, DIEGO Comer V06.5 DT, TETANUS-DIPHTHERIA [Td] ,TDAP 01/01/2010 BRIAN COBIAN, JANIE KELSIE V05.4 VARICELLA, CHICKENPOX 01/01/2010 BRIAN COBIAN, JANIE KELSIE V06.5 DT, TETANUS-DIPHTHERIA [Td] ,TDAP 01/01/2010 KAL RIVERA, DIEGO Comer V05.4 VARICELLA, CHICKENPOX 01/01/2010 KAL RIVERA, DIEGO Comer V06.5 DT, TETANUS-DIPHTHERIA [Td] ,TDAP 01/01/2010 KAL RIVERA, DIEGO Comer V05.4 VARICELLA, CHICKENPOX 01/01/2010 KAL RIVERA, DIEGO Comer V06.5 DT, TETANUS-DIPHTHERIA [Td] ,TDAP 01/01/2010 VALERIO DIAZN, MARE R V05.4 VARICELLA, CHICKENPOX 01/01/2010 VALERIO DIAZN, MARE R V06.5 DT, TETANUS-DIPHTHERIA [Td] ,TDAP 01/01/2010 KAL RIVERA, DIEGO Comer V05.4 VARICELLA, CHICKENPOX 01/01/2010 KAL RIVERA, DIEGO Comer V06.5 DT, TETANUS-DIPHTHERIA [Td] ,TDAP 01/01/2010 [facility] CASTING MOLDER, QUANG L V05.4 VARICELLA, CHICKENPOX 01/01/2010 [facility] CASTING MOLDER, QUANG L V06.5 DT, TETANUS-DIPHTHERIA [Td] ,TDAP 01/01/2010 KAL RIVERA, DIEGO Comer V05.4 VARICELLA, CHICKENPOX 01/01/2010 KAL RIVERA, DIEGO Comer V06.5 DT, TETANUS-DIPHTHERIA [Td] ,TDAP 12/28/2012 372.30 CONJUNCTIVITIS UNSPECIFIED 12/28/2012 995.3 ALLERGY UNSPECIFIED NOT ELSEWHERE CLASSIFIED 12/28/2012 DEO ELENA DO K 372.30 CONJUNCTIVITIS UNSPECIFIED 12/28/2012 DEO ELENA DO 995.3 ALLERGY UNSPECIFIED NOT ELSEWHERE CLASSIFIED 12/28/2012 DEO ELENA DO K 372.30 CONJUNCTIVITIS UNSPECIFIED 12/28/2012 RAVI ELENA DOA K 995.3 ALLERGY UNSPECIFIED NOT ELSEWHERE CLASSIFIED 12/28/2012 CLAUDIO ROMAN APRN A 372.30 CONJUNCTIVITIS UNSPECIFIED 12/28/2012 CLAUDIO ROMAN APRN A 995.3 ALLERGY UNSPECIFIED NOT ELSEWHERE CLASSIFIED 12/28/2012 BRIANA LUO APRNINA R 372.30 CONJUNCTIVITIS UNSPECIFIED 12/28/2012 VALERIO COBIAN, MARE R 995.3 ALLERGY UNSPECIFIED NOT ELSEWHERE CLASSIFIED 12/28/2012 DIEGO BOWDEN PHD 372.30 CONJUNCTIVITIS UNSPECIFIED 12/28/2012 DIEGO BOWDEN PHD 995.3 ALLERGY UNSPECIFIED NOT ELSEWHERE CLASSIFIED 12/28/2012 DIEGO BOWDEN PHD 372.30 CONJUNCTIVITIS UNSPECIFIED 12/28/2012 DIEGO BOWDEN PHD 995.3 ALLERGY UNSPECIFIED NOT ELSEWHERE CLASSIFIED 12/28/2012 BRIAN COBIAN JANIE IGLESIAS 372.30 CONJUNCTIVITIS UNSPECIFIED 12/28/2012 BRIAN COBIAN JANIE IGLESIAS 995.3 ALLERGY UNSPECIFIED NOT ELSEWHERE CLASSIFIED 12/28/2012 DIEGO BOWDEN PHD 372.30 CONJUNCTIVITIS UNSPECIFIED 12/28/2012 DIEGO BOWDEN PHD 995.3 ALLERGY UNSPECIFIED NOT ELSEWHERE CLASSIFIED 12/28/2012 DIEGO BOWDEN PHD 372.30 CONJUNCTIVITIS UNSPECIFIED 12/28/2012 DIEGO BOWDEN PHD 995.3 ALLERGY UNSPECIFIED NOT ELSEWHERE CLASSIFIED 12/28/2012 VALERIO COBIAN MARE R 372.30 CONJUNCTIVITIS UNSPECIFIED 12/28/2012 VALERIO COBIAN MARE R 995.3 ALLERGY UNSPECIFIED NOT ELSEWHERE CLASSIFIED 12/28/2012 DIEGO BOWDEN PHD 372.30 CONJUNCTIVITIS UNSPECIFIED 12/28/2012 DIEGO BOWDEN PHD 995.3 ALLERGY UNSPECIFIED NOT ELSEWHERE CLASSIFIED 12/28/2012 QUANG SANTIAGO APRN L 372.30 CONJUNCTIVITIS UNSPECIFIED 12/28/2012 MADL MANGO QUANG L 995.3 ALLERGY UNSPECIFIED NOT ELSEWHERE CLASSIFIED 12/28/2012 DIEGO BOWDEN PHD 372.30 CONJUNCTIVITIS UNSPECIFIED 12/28/2012 DIEGO BOWDEN PHD 995.3 ALLERGY UNSPECIFIED NOT ELSEWHERE CLASSIFIED 01/22/2013 ELENA DO, DEO K 110.3 DERMATOPHYTOSIS OF GROIN AND PERIANAL AREA 01/22/2013 ELENA DO, DEO K 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.3 DERMATOPHYTOSIS OF GROIN AND PERIANAL AREA 01/22/2013 JESSIE APRN, CLAUDIO A 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.3 DERMATOPHYTOSIS OF GROIN AND PERIANAL AREA 01/22/2013 VALERIO COBIAN MARE R 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.3 DERMATOPHYTOSIS OF GROIN AND PERIANAL AREA 01/22/2013 DIEGO BOWDEN PHD 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.3 DERMATOPHYTOSIS OF GROIN AND PERIANAL AREA 01/22/2013 DIEGO BOWDEN PHD 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.3 DERMATOPHYTOSIS OF GROIN AND PERIANAL AREA 01/22/2013 BRIAN COBIAN JANIE IGLESIAS 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.3 DERMATOPHYTOSIS OF GROIN AND PERIANAL AREA 01/22/2013 DIEGO BOWDEN PHD 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.3 DERMATOPHYTOSIS OF GROIN AND PERIANAL AREA 01/22/2013 DIEGO BOWDEN PHD 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.3 DERMATOPHYTOSIS OF GROIN AND PERIANAL AREA 01/22/2013 MARE LUO APRN 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.3 DERMATOPHYTOSIS OF GROIN AND PERIANAL AREA 01/22/2013 DIEGO BOWDEN PHD 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.3 DERMATOPHYTOSIS OF GROIN AND PERIANAL AREA 01/22/2013 QUANG SANTIAGO APRN 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.3 DERMATOPHYTOSIS OF GROIN AND PERIANAL AREA 01/22/2013 DIEGO BOWDEN PHD 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.3 DERMATOPHYTOSIS OF GROIN AND PERIANAL AREA 03/29/2013 MARIO MORRISON, MATEO Menjivar Ot 486 PNEUMONIA, ORGANISM NOS 03/29/2013 MARIO MORRISON, MATEO Menjivar Ot 786.50 CHEST PAIN NOS 07/05/2013 DEO ELENA DO K 787.01 NAUSEA WITH VOMITING 07/05/2013 DEO ELENA DO K 789.00 ABDOMINAL PAIN UNSPECIFIED SITE 07/05/2013 CLAUDIO ROMAN APRN 787.01 NAUSEA WITH VOMITING 07/05/2013 CLAUDIO ROMAN APRN A 789.00 ABDOMINAL PAIN UNSPECIFIED SITE 07/05/2013 MARE LUO APRN R 787.01 NAUSEA WITH VOMITING 07/05/2013 MARE LUO APRN R 789.00 ABDOMINAL PAIN UNSPECIFIED SITE 07/05/2013 DIEGO BOWDEN PHD 787.01 NAUSEA WITH VOMITING 07/05/2013 DIEGO BOWDEN PHD 789.00 ABDOMINAL PAIN UNSPECIFIED SITE 07/05/2013 DIEGO BOWDEN PHD 787.01 NAUSEA WITH VOMITING 07/05/2013 DIEGO BOWDEN PHD 789.00 ABDOMINAL PAIN UNSPECIFIED SITE 07/05/2013 JANIE TORRES APRN 787.01 NAUSEA WITH VOMITING 07/05/2013 JANIE TORRES APRN 789.00 ABDOMINAL PAIN UNSPECIFIED SITE 07/05/2013 DIEGO BOWDEN PHD 787.01 NAUSEA WITH VOMITING 07/05/2013 DIEGO BOWDEN PHD 789.00 ABDOMINAL PAIN UNSPECIFIED SITE 07/05/2013 DIEGO BOWDEN PHD 787.01 NAUSEA WITH VOMITING 07/05/2013 KAL RIVERA, DIEGO Comer 789.00 ABDOMINAL PAIN UNSPECIFIED SITE 07/05/2013 MARE LUO APRN 787.01 NAUSEA WITH VOMITING 07/05/2013 MARE LUO APRN 789.00 ABDOMINAL PAIN UNSPECIFIED SITE 07/05/2013 DIEGO BOWDEN PHD 787.01 NAUSEA WITH VOMITING 07/05/2013 DIEGO BOWDEN PHD 789.00 ABDOMINAL PAIN UNSPECIFIED SITE 07/05/2013 QUANG SANTIAGO APRN L 787.01 NAUSEA WITH VOMITING 07/05/2013 QUANG SANTIAGO APRN L 789.00 ABDOMINAL PAIN UNSPECIFIED SITE 07/05/2013 KAL RIVERA, DIEGO Comer 787.01 NAUSEA WITH VOMITING 07/05/2013 KAL RIVERA, DIEGO Comer 789.00 ABDOMINAL PAIN UNSPECIFIED SITE 07/05/2013 PEGGY HODGES APRN Ot 590.80 PYELONEPHRITIS NOS 07/05/2013 PEGGY HODGES APRN Ot 789.00 ABDOMINAL PAIN, UNSPECIFIED SITE 07/08/2013 HEAVEN MORRISON, JERMAIN Delacruz Ot 590.80 PYELONEPHRITIS NOS 07/08/2013 HEAVEN MORRISON, JERMAIN Delacruz Ot 789.03 ABDOMINAL PAIN, RIGHT LOWER QUADRANT 09/01/2013 JESSIE COBIAN, CLAUDIO A 691.8 ECZEMA- ATOPIC 09/01/2013 MARE LUO APRN 691.8 ECZEMA- ATOPIC 09/01/2013 KAL RIVERA, DIEGO Comer 691.8 ECZEMA- ATOPIC 09/01/2013 KAL RIVERA, DIEGO Comer 691.8 ECZEMA- ATOPIC 09/01/2013 JANIE TORRES APRN 691.8 ECZEMA- ATOPIC 09/01/2013 KAL RIVERA, DIEGO Comer 691.8 ECZEMA- ATOPIC 09/01/2013 KAL RIVERA, DIEGO Comer 691.8 ECZEMA- ATOPIC 09/01/2013 MARE LUO APRN R 691.8 ECZEMA- ATOPIC 09/01/2013 KAL RIVERA, DEIGO Comer 691.8 ECZEMA- ATOPIC 09/01/2013 QUANG SANTIAGO APRN L 691.8 ECZEMA- ATOPIC 09/01/2013 KAL RIVERA, DIEGO Comer 691.8 ECZEMA- ATOPIC 10/22/2013 MARE LUO APRN R 311 DEPRESSIVE DISORDER NOS 10/22/2013 VALERIO CASTING MOLDER, MARE R 784.0 HEADACHE 10/22/2013 KAL RIVERA, DIEGO Comer 311 DEPRESSIVE DISORDER NOS 10/22/2013 KAL RIVERA, DIEGO Comer 784.0 HEADACHE 10/22/2013 KAL RIVERA, DIEGO Comer 311 DEPRESSIVE DISORDER NOS 10/22/2013 KAL RIVERA, DIEGO Comer 784.0 HEADACHE 10/22/2013 BRIAN COBIAN JANIE IGLESIAS 311 DEPRESSIVE DISORDER NOS 10/22/2013 BRIAN COBIAN JANIE IGLESIAS 784.0 HEADACHE 10/22/2013 DIEGO BOWDEN PHD 311 DEPRESSIVE DISORDER NOS 10/22/2013 KAL RIVERA, DIEGO Comer 784.0 HEADACHE 10/22/2013 KAL RIVERA, DIEGO Comer 311 DEPRESSIVE DISORDER NOS 10/22/2013 KAL RIVERA, DIEGO Comer 784.0 HEADACHE 10/22/2013 VALERIO COBIAN MARE R 311 DEPRESSIVE DISORDER NOS 10/22/2013 VALERIO COBIAN MARE R 784.0 HEADACHE 10/22/2013 DIEGO BOWDEN PHD 311 DEPRESSIVE DISORDER NOS 10/22/2013 DIEGO BOWDEN PHD 784.0 HEADACHE 10/22/2013 QUANG SANTIAGO APRN L 311 DEPRESSIVE DISORDER NOS 10/22/2013 MADSusan COBIAN, QUANG L 784.0 HEADACHE 10/22/2013 DIEGO BOWDEN PHD 311 DEPRESSIVE DISORDER NOS 10/22/2013 KAL RIVERA, DIEGO Comer 784.0 HEADACHE 11/04/2013 DIEGO BOWDEN PHD 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 11/04/2013 DIEGO BOWDEN PHD 300.23 AN SOCIAL PHOBIA 11/04/2013 DIEGO BOWDEN PHD 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 11/04/2013 DIEGO BOWDEN PHD 300.23 AN SOCIAL PHOBIA 11/04/2013 BRIAN COBIAN JANIE KELSIE 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 11/04/2013 BRIAN COBIAN JANIE KELSIE 300.23 AN SOCIAL PHOBIA 11/04/2013 DIEGO BOWDEN PHD 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 11/04/2013 DIEGO BOWDEN PHD 300.23 AN SOCIAL PHOBIA 11/04/2013 DIEGO BOWDEN PHD 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 11/04/2013 DIEGO BOWDEN PHD 300.23 AN SOCIAL PHOBIA 11/04/2013 MARE LUO APRN R 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 11/04/2013 MARE LUO APRN R 300.23 AN SOCIAL PHOBIA 11/04/2013 DIEGO BOWDEN PHD 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 11/04/2013 DIEGO BOWDEN PHD 300.23 AN SOCIAL PHOBIA 11/04/2013 QUANG SANTIAGO APRN L 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 11/04/2013 QUANG SANTIAGO APRN L 300.23 AN SOCIAL PHOBIA 11/04/2013 DIEGO BOWDEN PHD 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 11/04/2013 DIEGO BOWDEN PHD 300.23 AN SOCIAL PHOBIA 01/05/2014 JANIE TORRES APRN 296.32 MO DEPRESSIVE RECURRENT MODERATE 01/05/2014 DIEGO BOWDEN PHD 296.32 MO DEPRESSIVE RECURRENT MODERATE 01/05/2014 DIEGO BOWDEN PHD 296.32 MO DEPRESSIVE RECURRENT MODERATE 01/05/2014 MARE LUO APRN R 296.32 MO DEPRESSIVE RECURRENT MODERATE 01/05/2014 DIEGO BOWDEN PHD 296.32 MO DEPRESSIVE RECURRENT MODERATE 01/05/2014 QUANG SANTIAGO APRN 296.32 MO DEPRESSIVE RECURRENT MODERATE 01/05/2014 DIEGO BOWDEN PHD 296.32 MO DEPRESSIVE RECURRENT MODERATE 01/08/2014 JANIE TORRES APRN KELSIE 300.02 AN GEN ANXIETY 01/08/2014 DIEGO BOWDEN PHD 300.02 AN GEN ANXIETY 01/08/2014 DIEGO BOWDEN PHD 300.02 AN GEN ANXIETY 01/08/2014 MARE LUO APRN R 300.02 AN GEN ANXIETY 01/08/2014 DIEGO BOWDEN PHD 300.02 AN GEN ANXIETY 01/08/2014 QUANG SANTIAGO APRN 300.02 AN GEN ANXIETY 01/08/2014 DIEGO BOWDEN PHD 300.02 AN GEN ANXIETY 02/02/2014 DIEGO BOWDEN PHD 300.00 AN ANXIETY UNSPEC 02/02/2014 DIEGO BOWDEN PHD 300.00 AN ANXIETY UNSPEC 02/02/2014 MARE LUO APRN R 300.00 AN ANXIETY UNSPEC 02/02/2014 DIEGO BOWDEN PHD 300.00 AN ANXIETY UNSPEC 02/02/2014 QUANG SANTIAGO APRN 300.00 AN ANXIETY UNSPEC 02/02/2014 DIEGO BOWDEN PHD 300.00 AN ANXIETY UNSPEC 03/07/2014 KAL RIVERA, DIEGO Comer 296.31 MO DEPRESSIVE RECURRENT MILD 03/07/2014 VALERIO COBIAN, MARE R 296.31 MO DEPRESSIVE RECURRENT MILD 03/07/2014 DIEGO BOWDEN PHD 296.31 MO DEPRESSIVE RECURRENT MILD 03/07/2014 MADSusan COBIAN, QUANG L 296.31 MO DEPRESSIVE RECURRENT MILD 03/07/2014 DIEGO BOWDEN PHD 296.31 MO DEPRESSIVE RECURRENT MILD 04/05/2014 DIEGO BOWDEN PHD 296.25 MO DEPRESSIVE SINGLE IN PART OR UNSPECIFIED REMISSION 04/05/2014 PAMELA COBIAN, QUANG L 296.25 MO DEPRESSIVE SINGLE IN PART OR UNSPECIFIED REMISSION 04/05/2014 DIEGO BOWDEN PHD 296.25 MO DEPRESSIVE SINGLE IN PART OR UNSPECIFIED REMISSION 08/31/2014 PAMELA COBIAN, QUANG L 789.06 ABDOMINAL PAIN EPIGASTRIC 08/31/2014 DIEGO BOWDEN PHD 789.06 ABDOMINAL PAIN EPIGASTRIC 12/20/2015 PEGGY HODGES CASTING MOLDER Ot F41.9 ANXIETY DISORDER, UNSPECIFIED 12/20/2015 PEGGY HODGES CASTING MOLDER Ot N20.0 CALCULUS OF KIDNEY 12/20/2015 PEGGY HODGES CASTING MOLDER Ot R31.2 OTHER MICROSCOPIC HEMATURIA 12/20/2015 PEGGY HODGES CASTING MOLDER Ot R45.851 SUICIDAL IDEATIONS 12/21/2015 PEGGY HODGES CASTING MOLDER Ot F41.9 12/21/2015 PEGGY HODGES CASTING MOLDER Ot N20.0 12/21/2015 PEGGY HODGES CASTING MOLDER Ot R31.2 12/21/2015 PEGGY HODGES CASTING MOLDER Ot R45.851 12/22/2015 PEGGY HODGES CASTING MOLDER Ot F41.9 12/22/2015 PEGGY HODGES CASTING MOLDER Ot N20.0 12/22/2015 PEGGY HODGES CASTING MOLDER Ot R31.2 12/22/2015 PEGGY HODGES CASTING MOLDER Ot R45.851 12/27/2015 PEGGY HODGES CASTING MOLDER Ot F41.9 12/27/2015 PEGGY HODGES CASTING MOLDER Ot N20.0 12/27/2015 PEGGY HODGES CASTING MOLDER Ot R31.2 12/27/2015 PEGGY HODGES CASTING MOLDER Ot R45.851 01/09/2016 PEGGY HODGES CASTING MOLDER Ot F41.9 01/09/2016 PEGGY HODGES CASTING MOLDER Ot N20.0 01/09/2016 PEGGY HODGES CASTING MOLDER Ot R31.2 01/09/2016 PEGGY HODGES CASTING MOLDER Ot R45.851 Procedures Code Description [place] [address] ROUTINE VENIPUNCTURE 07/05/2013 08982 THERAPUTIC INJ SQ/IM 07/05/2013 J1885 TORADOL INJ 07/05/2013 J2550 PHENERGAN INJECTION UP TO 50 MG 07/05/2013 08116 CBC 07/05/2013 71206 CMP 07/05/2013 2476314 GFR CALC (RESULT ONLY) 07/05/2013 98202 KUB 07/06/2013 83732 PSYCH DIAGNOSTIC EVALUATION 11/05/2013 26536 PSYTX PT&/FAMILY 45 MINUTES 11/24/2013 64927 PSYTX PT&/FAMILY 30 MINUTES 01/08/2014 98374 PSYTX PT&/FAMILY 30 MINUTES 02/02/2014 52062 PSYTX PT&/FAMILY 30 MINUTES 03/07/2014 97117 ROUTINE VENIPUNCTURE 03/16/2014 50129 CBC 03/16/2014 41915 CMP 03/16/2014 8747770 GFR CALC (RESULT ONLY) 03/16/2014 57429 TSH 03/16/2014 55903 PSYTX PT&/FAMILY 45 MINUTES 04/05/2014 84510 ROUTINE VENIPUNCTURE 08/31/2014 98331 H PYLORI (IN-HOUSE) 08/31/2014 23062 CBC 08/31/2014 33176 CMP 08/31/2014 4243804 GFR CALC (RESULT ONLY) 08/31/2014 86070 PSYTX PT&/FAMILY 30 MINUTES 10/18/2014 Results There is no data. Encounters ACCT No. Visit Date/Time Discharge Status Pt. Type Provider Facility Loc./Unit Complaint [id number] 10/18/2014 17:46:00 10/18/2014 23:59:59 CLS Outpatient KAL RIVERA, DIEGO Comer [id number] 08/31/2014 11:05:00 08/31/2014 23:59:59 CLS Outpatient QUANG SANTIAGO APRN [id number] 04/05/2014 18:00:00 04/05/2014 23:59:59 CLS Outpatient DIEGO BOWDEN PHD [id number] 03/16/2014 08:43:00 03/16/2014 23:59:59 CLS Outpatient MARE LUO APRN [id number] 03/07/2014 14:53:00 03/07/2014 23:59:59 CLS Outpatient DIEGO BOWDEN PHD [id number] 02/02/2014 15:27:00 02/02/2014 23:59:59 CLS Outpatient DIEGO BOWDEN PHD [id number] 01/08/2014 12:25:00 01/08/2014 23:59:59 CLS Outpatient BRIAN COBIAN JANIE IGLESIAS [id number] 11/24/2013 08:01:00 11/24/2013 23:59:59 CLS Outpatient DIEGO BOWDEN PHD [id number] 11/04/2013 12:53:00 11/04/2013 23:59:59 CLS Outpatient DIEGO BOWDEN PHD [id number] 10/22/2013 10:58:00 10/22/2013 23:59:59 CLS Outpatient MARE LUO APRN [id number] 09/01/2013 17:37:00 09/01/2013 23:59:59 CLS Outpatient CLAUDIO ROMAN APRN [id number] 07/05/2013 13:17:00 07/05/2013 23:59:59 CLS Outpatient DEO ELENA DO [id number] 01/22/2013 09:41:00 01/22/2013 23:59:59 CLS Outpatient DEO ELENA DO [id number] 12/28/2012 09:15:00 12/28/2012 23:59:59 CLS Outpatient [id number] 12/20/2015 18:54:00 12/20/2015 21:51:00 DIS Emergency PEGGY HODGES APRN [facility] ER DEPRESSION [id number] 07/08/2013 12:04:00 07/08/2013 15:45:00 DIS Emergency JERMAIN COLLADO MD [facility] ER LOWER RT ABD PAIN [id number] 07/05/2013 16:04:00 07/05/2013 19:51:00 DIS Emergency PEGGY HODGES APRN [facility] ER ABD PAIN [id number] 03/29/2013 18:52:00 03/29/2013 21:39:00 DIS Emergency MARIO MORRISON, MATEO Menjivar [facility] ER CP
--- OUTSIDE RECORDS SUMMARY | 2018-07-20 03:49 | XMS REPORT | Continuity of Care Document ---
Author Author [facility] Organization [facility] Address Unknown Phone Unavailable Care Team Providers Care Janitor Helper Name Role Phone [facility] OF Insurance Providers Payer Name Policy Number Subscriber Name Relationship [employer] [id number] Axel Schuster 01 Self / Same As Patient Advance Directives Directive Response Recorded Date Advance Directives N 07/08/13 12:50pm Health Care Power of Twisting Frame Changer N 07/05/13 4:18pm Organ Donor N 07/05/13 4:18pm Problems No Known Problems or Medical conditions. Social History History Response Recorded Date/Time Alcohol Use Denies Use 07/08/13 12:50pm Recreational Drug Use N 07/08/13 12:50pm Allergies, Adverse Reactions, Alerts Allergen Type Severity Reaction Last Updated No Known Drug Allergies 06/05/10 Medications Medication Dose Units Route Sig Qty Days Acetaminophen/Hydrocodone Bitart (Lortab 10-500 Tablet) 1 Each PO Q 4 - 6 HRS PRN 10 Ondansetron Hcl (Zofran Oral Dissolve) 4 Mg PO Q4H PRN 10 Levofloxacin (Levaquin 500 Mg) 1 Each PO DAILY 10 Azithromycin (Zithromax Tab) 0 PO Z-DAVID 6 Response Recorded Date/Time Status not known Unknown Results No Known Relevant Diagnostic Tests, Laboratory Data and/or Discharge Summary. Procedures Procedure Code Date LAPAROSCOP APPENDECTOMY 47.01 06/05/10 Encounters Encounter Location Date/Time Departed Emergency Room [facility] 12/16 12:04pm Discharged Inpatient [facility] 4:10pm
[2018-07-20] MEDS ORDERED: NS IV 1000 ML 1,000 ML IV SCH (03:51)
[2018-07-20] MEDS ORDERED: BUSP10TA95 PO (03:54)
[2018-07-20] MEDS ORDERED: QUET100T69 (03:54)
[2018-07-20] MEDS ORDERED: RT-ALBUINH (03:54)
--- NOTE | 2018-07-20 03:59 | ED Abdominal Pain ---
General Chief Complaint: Abdominal/GI Problems Stated Complaint: VOMITING,BACK PAIN Source of Information: Patient, Family (mom) Exam Limitations: No Limitations History of Present Illness Date Seen by Provider: Jul 20, 2018 Time Seen by Provider: 03:45 Initial Comments The patient presents to ER by private conveyance with his mother and a chief complaint that yesterday evening he started having some progressively worsening pain in his left flank and left abdomen. He has a history of kidney stones but he says this pain is different. He's been having nausea with multiple vomiting episodes. Last bowel movement was yesterday and it was normal formed. He has no history of IBS or IBD. He did have his appendix out laparoscopically years ago. No fevers chills cough shortness of breath or chest pain. No other significant medical problems except for anxiety and depression for which he uses Xanax and some other medications that he's not sure what the names are. He does not smoke drink or use drugs nor have any history of pancreatitis. He rates the pain as severe. Allergies and Home Medications Allergies Coded Allergies: No Known Drug Allergies (Unverified , 06/05/10) Home Medications Cephalexin 500 Mg Tablet, 500 MG PO BID Prescribed by: JOSE GUADALUPE TELLO on 07/20/18520 Hydrocodone Bit/Acetaminophen 1 Tab Tab, 1-2 EACH PO Q6H PRN for BREAKTHROUGH PAIN Prescribed by: JOSE GUADALUPE TELLO on 07/20/18520 Ondansetron 4 Mg Tab.rapdis, 4 MG PO Q6H PRN for NAUSEA/VOMITING Prescribed by: JOSE GUADALUPE TELLO on 07/20/18520 Tamsulosin HCl 0.4 Mg Cap, 0.4 MG PO HS Prescribed by: JOSE GUADALUPE TELLO on 07/20/18520 Patient Home Medication List Home Medication List Reviewed: Yes Review of Systems Review of Systems Constitutional: No chills, No diaphoresis, No fever EENTM: No Blurred Vision, No Double Vision Respiratory: Denies Cough, Denies Shortness of Air Cardiovascular: Denies Chest Pain, Denies Edema Gastrointestinal: Denies Abdomen Distended; Abdominal Pain; Denies Constipated , Denies Diarrhea; Nausea, Vomiting Genitourinary: Denies Burning, Denies Discharge, Denies Drainage Musculoskeletal: No back pain, No joint pain, No joint swelling Skin: No pruritus, No rash Past [id number]-[id number] Hx Patient Social History Alcohol Use: Denies Use Recreational Drug Use: No Smoking Status: Never a Smoker Recent Foreign Travel: No Contact w/Someone Who Travel: No Immunizations Up To Date Tetanus Booster (TDap): Unknown Past Medical History Appendectomy Pneumonia Reproductive Disorders: No Anxiety, Depression Family Medical History Patient reports no known family medical history. Physical Exam Vital Signs Vital Signs - First Documented 07/20/18 03:50 Temp 96.3 Pulse 83 Resp 20 B/P (MAP) 139/82 (101) Pulse Ox 100 O2 Delivery Room Air Capillary Refill : Height/Weight/BMI Height: 5'9" Weight: 126lbs. oz. 57.185135sp; 18.60 BMI Method:Stated General Appearance: WD/WN, moderate distress HEENT: PERRL/EOMI, pharynx normal Neck: non-tender, normal inspection Respiratory: chest non-tender, lungs clear, normal breath sounds, no respiratory distress, no accessory muscle use Cardiovascular: normal peripheral pulses, regular rate, rhythm Peripheral Pulses: 2+ Radial Pulses (R), 2+ Radial Pulses (L) Gastrointestinal: normal bowel sounds, guarding; No rebound; tenderness (left upper quadrant, right upper quadrant, left lower quadrant) Extremities: normal range of motion, non-tender, normal inspection, normal capillary refill Back: normal inspection, no vertebral tenderness, CVA tenderness (R), CVA tenderness (L) Neurologic/Psychiatric: alert, oriented x 3 Progress/Results/Core Measures Results/Orders Lab Results Laboratory Tests Test 07/20/18 04:00 07/20/18 04:35 Range/Units White Blood Count 8.8 4.3-11.0 10^3/uL Red Blood Count 4.62 4.35-5.85 10^6/uL Hemoglobin 14.0 13.3-17.7 G/DL Hematocrit 38 L 40-54 % Mean Corpuscular Volume 83 80-99 FL Mean Corpuscular Hemoglobin 30 25-34 PG Mean Corpuscular Hemoglobin Concent 37 H 32-36 G/DL Red Cell Distribution Width 13.4 10.0-14.5 % Platelet Count 215 130-400 10^3/uL Mean Platelet Volume 10.0 7.4-10.4 FL Neutrophils (%) (Auto) 52 42-75 % Lymphocytes (%) (Auto) 36 12-44 % Monocytes (%) (Auto) 7 0-12 % Eosinophils (%) (Auto) 6 0-10 % Basophils (%) (Auto) 1 0-10 % Neutrophils # (Auto) 4.6 1.8-7.8 X 10^3 Lymphocytes # (Auto) 3.1 1.0-4.0 X 10^3 Monocytes # (Auto) 0.6 0.0-1.0 X 10^3 Eosinophils # (Auto) 0.5 H 0.0-0.3 10^3/uL Basophils # (Auto) 0.0 0.0-0.1 10^3/uL Sodium Level 143 135-145 MMOL/L Potassium Level 3.3 L 3.6-5.0 MMOL/L Chloride Level 106 98-107 MMOL/L Carbon Dioxide Level 23 21-32 MMOL/L Anion Gap 14 5-14 MMOL/L Blood Urea Nitrogen 12 7-18 MG/DL Creatinine 0.92 0.60-1.30 MG/DL Estimat Glomerular Filtration Rate > 60 BUN/Creatinine Ratio 13 Glucose Level 144 H 70-105 MG/DL Calcium Level 9.3 8.5-10.1 MG/DL Corrected Calcium 8.5-10.1 MG/DL Magnesium Level 2.2 1.8-2.4 MG/DL Total Bilirubin 1.3 H 0.1-1.0 MG/DL Aspartate Amino Transf (AST/SGOT) 16 5-34 U/L Alanine Aminotransferase (ALT/SGPT) 14 0-55 U/L Alkaline Phosphatase 81 40-136 U/L Total Protein 7.5 6.4-8.2 GM/DL Albumin 4.6 H 3.2-4.5 GM/DL Lipase 99 H 8-78 U/L Monoscreen NEGATIVE NEGATIVE Urine Color RED H Urine Clarity VERY CLOUDY H Urine pH 6.5 5-9 Urine Specific [place] 1.020 1.016-1.022 Urine Protein 2+ H NEGATIVE Urine Glucose (UA) NEGATIVE NEGATIVE Urine Ketones NEGATIVE NEGATIVE Urine Nitrite NEGATIVE NEGATIVE Urine Bilirubin NEGATIVE NEGATIVE Urine Urobilinogen 1 NORMAL MG/DL Urine Leukocyte Esterase 1+ H NEGATIVE Urine RBC (Auto) 5+ H NEGATIVE Urine RBC TNTC H /HPF Urine WBC 5-10 H /HPF Urine Crystals NONE /LPF Urine Bacteria FEW H /HPF Urine Casts NONE /LPF Urine Mucus NEGATIVE /LPF Urine Culture Indicated YES Urine Opiates Screen NEGATIVE NEGATIVE Urine Oxycodone Screen NEGATIVE NEGATIVE Urine Methadone Screen NEGATIVE NEGATIVE Urine Propoxyphene Screen NEGATIVE NEGATIVE Urine Barbiturates Screen NEGATIVE NEGATIVE Ur Tricyclic Antidepressants Screen POSITIVE H NEGATIVE Urine Phencyclidine Screen NEGATIVE NEGATIVE Urine Amphetamines Screen NEGATIVE NEGATIVE Urine Methamphetamines Screen NEGATIVE NEGATIVE Urine Benzodiazepines Screen NEGATIVE NEGATIVE Urine Cocaine Screen NEGATIVE NEGATIVE Urine Cannabinoids Screen NEGATIVE NEGATIVE My Orders Orders - ELISHA,JOSE GUADALUPE Macias Cbc With Automated Diff (07/20/18 03:51) Comprehensive Metabolic Panel (07/20/18 03:51) Drug Screen Stat (Urine) (07/20/18 03:51) Lipase (07/20/18 03:51) Magnesium (07/20/18 03:51) Monotest (07/20/18 03:51) Ua Culture If Indicated (07/20/18 03:51) Saline Lock/Iv-Start (07/20/18 03:51) Ns Iv 1000 Ml (Sodium Chloride 0.9%) (07/20/18 03:51) Ketorolac Injection (Toradol Injection) (07/20/18 04:00) Ondansetron Injection (Zofran Injectio (07/20/18 04:00) Ct Abdomen/Pelvis W Wo (07/20/18 04:38) Ceftriaxone For Iv Use (Rocephin For I (07/20/18 04:45) Urine Culture (07/20/18 04:35) Iohexol Injection (Omnipaque 350 Mg/Ml 1 (07/20/18 05:15) Ns (Ivpb) (Sodium Chloride 0.9%) (07/20/18 05:15) Medications Given in ED Current Medications Medications Dose Ordered Sig/Gustavo Route Start Time Stop Time Status Last Admin Dose Admin Ceftriaxone Sodium 1000 mg/ Sodium Chloride 50 ml @ 100 mls/hr ONCE ONCE IV 07/20/18 04:45 07/20/18 05:14 DC 07/20/18 04:54 100 MLS/HR Iohexol 100 ml ONCE ONCE IV 07/20/18 05:15 07/20/18 05:16 DC 07/20/18 05:05 100 ML Ketorolac Tromethamine 30 mg ONCE ONCE IVP 07/20/18 04:00 07/20/18 04:01 DC 10/15/18 04:05 30 MG Ondansetron HCl 4 mg ONCE ONCE IVP 07/20/18 04:00 07/20/18 04:01 DC 07/20/18 04:04 4 MG Sodium Chloride 250 ml ONCE ONCE IV 07/20/18 05:15 07/20/18 05:16 DC 07/20/18 05:05 80 ML Vital Signs/I&O 07/20/18 07/20/18 03:50 04:05 Temp 96.3 96.3 Pulse 83 Resp 20 B/P (MAP) 139/82 (101) Pulse Ox 100 O2 Delivery Room Air Progress Progress Note #1: Time: 03:57 Progress Note We will start with some Toradol and Zofran for his pain put an IV in with some normal saline since he's been having nausea with vomiting and check some labs to include magnesium, lipase, rapid monoscreen and a urinalysis with urine drug screen. If there is some evidence of kidney stones and will do a CT abdomen without contrast. If he has elevated white blood cells or other worrisome findings we can do a CT with and without. Progress Note #2: Time: 05:16 Progress Note The patient does have a kidney stone on the left ureter proximally close to the tail of the pancreas. He would be my assumption that the elevated lipase is due to secondary inflammation from the kidney stone and not primary pancreatitis. The patient is not septic so we'll set him up some outpatient follow-up with urology. Diagnostic Imaging Diagonstic Imaging: CT (with and without contrast) Plain Films/CT/US/NM/MRI: abdomen, pelvis Comments Left ureteral calculi approximate 5-6 mm diameter in the proximal ureter. There is no abscess or inflammation visible on the pancreas. No other acute abdominal process Reviewed: [facility] Departure Impression Primary Impression: Ureteral calculus, left Additional Impression: Acute pancreatitis without infection or necrosis Qualified Codes: K85.80 - Other acute pancreatitis without necrosis or infection Disposition: HOME, SELF-CARE Condition: Improved Departure-Patient Inst. Decision time for Depature: 05:37 Referrals: [facility] (PCP/Family) Primary Care Physician COLLEEN HUDSON MD Patient Instructions: Kidney Stones (DC) Add. Discharge Instructions: Drink lots of water. Caffeine is encouraged. Use the Zofran 1 tablet every 6 hours as needed to control your nausea. If your pain is getting out of control you can use 800 mg of ibuprofen every 8 hours and one to 2 of the hydrocodone every 6 hours as needed. Take a tablet of Flomax daily until the stone passes. Strain your urine to see if he can catch the stone. Sometimes stones we will break up and fine sand and you'll miss them but symptoms should resolve 1-2 days after passing a stone. This morning you should call the urologist and request outpatient consultation as the stone is beyond the normal size it usually passes easily. Finally take the antibiotics 1 tablet twice a day for the next 7 days. All discharge instructions reviewed with patient and/or family. Voiced understanding. Scripts Tamsulosin HCl (Flomax) 0.4 Mg Cap 0.4 MG PO HS for 7 Days, #7 CAP 0 Refills Prov: JOSE GUADALUPE TELLO 07/20/18 Ondansetron (Ondansetron Odt) 4 Mg Tab.rapdis 4 MG PO Q6H PRN for NAUSEA/VOMITING, #8 TAB 0 Refills Prov: JOSE GUADALUPE TELLO 07/20/18 Hydrocodone Bit/Acetaminophen (Hydrocodone/Acetaminophen 5/325mg Tablet) 1 Tab Tab 1-2 EACH PO Q6H PRN for BREAKTHROUGH PAIN MDD 10 for 7 Days, #16 TAB 0 Refills Prov: JOSE GUADALUPE TELLO 07/20/18 Cephalexin (Cephalexin) 500 Mg Tablet 500 MG PO BID for 7 Days, #14 TAB 0 Refills Prov: JOSE GUADALUPE TELLO 07/20/18 Work/School Note: Work Release Form Date Seen in the Emergency Department: Jul 20, 2018 Return to Work: Jul 22, 2018 Restrictions: No Restrictions Copy Copies To 1: DEO ELENA DO; COLLEEN HUDSON MD, TITUS J Jul 20, 2018 03:59
[2018-07-20] MEDS ORDERED: KETOROLAC 30 MG/ML VIAL IVP ONE (04:00)
[2018-07-20] MEDS ORDERED: ONDANSETRON 4 MG/2 ML (SDV) Z0FRAN IVP ONE (04:00)
[2018-07-20 04:14] LABS: BASOPHILS % (AUTO) 1 % (0-10); EOSINOPHILS # (AUTO) 0.5 10^3/uL (0.0-0.3); EOSINOPHILS % (AUTO) 6 % (0-10); HEMATOCRIT 38 % (40-54); LYMPHOCYTES # (AUTO) 3.1 X 10^3 (1.0-4.0); LYMPHOCYTES % (AUTO) 36 % (12-44); MEAN CORPUSCULAR HEMOGLOBIN 30 PG (25-34); MEAN CORPUSCULAR HGB CONC 37 G/DL (32-36); MEAN CORPUSCULAR VOLUME 83 FL (80-99); MONOCYTES # (AUTO) 0.6 X 10^3 (0.0-1.0); MONOCYTES % (AUTO) 7 % (0-12); NEUTROPHILS # (AUTO) 4.6 X 10^3 (1.8-7.8); NEUTROPHILS % (AUTO) 52 % (42-75); PLATELET COUNT 215 10^3/uL (130-400); RED BLOOD COUNT 4.62 10^6/uL (4.35-5.85); RED CELL DISTRIBUTION WIDTH 13.4 % (10.0-14.5); WHITE BLOOD COUNT 8.8 10^3/uL (4.3-11.0)
[2018-07-20 04:32] LABS: ALANINE AMINOTRANSFERASE 14 U/L (0-55); ALBUMIN 4.6 GM/DL (3.2-4.5); ALKALINE PHOSPHATASE 81 U/L (40-136); BILIRUBIN,TOTAL 1.3 MG/DL (0.1-1.0); BUN/CREATININE RATIO 13; CALCIUM 9.3 MG/DL (8.5-10.1); CARBON DIOXIDE 23 MMOL/L (21-32); CHLORIDE 106 MMOL/L (98-107); CREATININE SERUM 0.92 MG/DL (0.60-1.30); GFR ESTIMATED > 60; GLUCOSE 144 MG/DL (70-105); LIPASE 99 U/L (8-78); MAGNESIUM 2.2 MG/DL (1.8-2.4); POTASSIUM 3.3 MMOL/L (3.6-5.0); SODIUM 143 MMOL/L (135-145); TOTAL PROTEIN 7.5 GM/DL (6.4-8.2)
[2018-07-20] MEDS ORDERED: cefTRIAXone FOR IV USE 1,000 MG in NS (IVPB) 50 ML IV ONE (04:45)
[2018-07-20 04:49] LABS: BILIRUBIN,URINE NEGATIVE (NEGATIVE); CLARITY,URINE VERY CLOUDY; COLOR,URINE RED; GLUCOSE, URINE (UA) NEGATIVE (NEGATIVE); KETONES,URINE NEGATIVE (NEGATIVE); LEUKOCYTE ESTERASE ,URINE 1+ (NEGATIVE); NITRITE,URINE NEGATIVE (NEGATIVE); PH,URINE 6.5 (5-9); PROTEIN,URINE 2+ (NEGATIVE); UROBILINOGEN,URINE 1 MG/DL (NORMAL)
[2018-07-20 04:58] LABS: AMPHETAMINE SCREEN, URINE NEGATIVE (NEGATIVE); BACTERIA,URINE FEW /HPF; BARBITURATE SCREEN URINE NEGATIVE (NEGATIVE); BENZODIAZEPINES SCREEN URINE NEGATIVE (NEGATIVE); CANNABINOID SCREEN, URINE NEGATIVE (NEGATIVE); COCAINE SCREEN URINE NEGATIVE (NEGATIVE); METHADONE STAT NEGATIVE (NEGATIVE); METHAMPHETAMINE SCREEN URINE S NEGATIVE (NEGATIVE); OPIATE SCREEN URINE NEGATIVE (NEGATIVE); OXYCODONE STAT NEGATIVE (NEGATIVE); PROPOXYPHENE STAT NEGATIVE (NEGATIVE); RBC,URINE TNTC /HPF; TRICYCLIC ANTIDEPRESSANTS SCRE POSITIVE (NEGATIVE)
[2018-07-20] MEDS ORDERED: NS 250 ML (IVPB) BAG IV ONE (05:15)
[2018-07-20] MEDS ORDERED: IOHEXOL 350 MG/ML 100 ML (OMNIPAQUE 350) VIAL IV ONE (05:15)
[2018-07-20] MEDS ORDERED: ONDA4TAB11 PO (05:21)
[2018-07-20] MEDS ORDERED: ACHD5005 PO (05:21)
[2018-07-20] MEDS ORDERED: CEPH500T PO (05:21)
[2018-07-20] MEDS ORDERED: TAMS0.4C98 PO (05:21)
[2018-07-20 05:45] VITALS: BP 116/72
--- NOTE | 2018-07-20 06:45 | Diagnostic Imaging Report ---
PROCEDURE: CT abdomen and pelvis with and without contrast. TECHNIQUE: Precontrast acquisitions were acquired through the abdomen and pelvis. Multiple contiguous axial images were obtained through the abdomen and pelvis after the administration of intravenous contrast. INDICATION: Left flank pain. Nausea and vomiting COMPARISON: 12/20/2015 FINDINGS: Included portions of the lung bases are clear. CT abdomen: There is a 5 mm calculus at the left UPJ (image 37, series 2). There may be minimal asymmetric left-sided hydronephrosis. Multiple additional bilateral nonobstructive renal calculi are identified. No focal renal masses are seen. The adrenal glands, spleen, pancreas, and liver have a normal CT appearance. Small bowel loops are nondistended. Normal appendix cannot be adequately identified, but appears to be surgically absent. There is no loculated fluid collection, free fluid, nor free air within the abdomen. No abnormal mesenteric or retroperitoneal adenopathy is seen. Bony structures show no acute abnormalities. CT pelvis: Urinary bladder is grossly unremarkable. There is no loculated fluid collection, free fluid, nor free air within the pelvis. There is excreted contrast which extends past the UPJ stone and opacifies the distal left ureter. No abnormal adenopathy is identified within the pelvis. Bony structures show no acute abnormalities. IMPRESSION: 1. Incompletely obstructive 5 mm calculus at the left UPJ. 2. Multiple additional bilateral nonobstructive renal calculi. Dictated by: Dictated on workstation # [id number]
== END 2018-07-20 05:44 | disposition home or self-care (01) ==
LOC: EDUNIT# 03:44 → ER 03:45
DX: N20.2 Calculus of kidney with calculus of ureter (principal); K85.80 Other acute pancreatitis without necrosis or infection; F41.9 Anxiety disorder, unspecified; F32.9 Major depressive disorder, single episode, unspecified; Z87.442 Personal history of urinary calculi; Z90.89 Acquired absence of other organs; Z87.01 Personal history of pneumonia (recurrent)
CPT/HCPCS: 36415; 74178; 80053; 80306; 81000; 83690; 83735; 85025; 86308; 87088; 96361; 96365; 96375

== ENCOUNTER 2018-07-22 04:15 | Emergency (ER) | payer BC ==
[~2018-07-22] VITALS: Ht 175.3 cm; Wt 63.0 kg
[~2018-07-22 04:15] MED LIST changes: +ACHD5005 PO; +BUSP10TA95 PO; +CEPH500T PO; +ONDA4TAB11 PO; +QUET100T69; +RT-ALBUINH; +TAMS0.4C98 PO
--- OUTSIDE RECORDS SUMMARY | 2018-07-22 04:23 | XMS REPORT | Continuity of Care Document ---
Author Author [facility] Address Unknown Phone Unavailable Allergies Active Description Code Type Severity Reaction Onset Reported/Identified Relationship to Patient Clinical Status Yes No Known Drug Allergies [id number] Drug Allergy Unknown N/A 06/05/2010 Medications There is no data. Problems Date Dx Coded Attending Type Code Diagnosis Diagnosed By 08/29/2008 380.4 CERUMEN IMPACTION 08/29/2008 466.0 BRONCHITIS, ACUTE 08/29/2008 ELENA DO, DEO K 380.4 CERUMEN IMPACTION 08/29/2008 ELENA DO, DEO K 466.0 BRONCHITIS, ACUTE 08/29/2008 ELENA DO DEO K 380.4 CERUMEN IMPACTION 08/29/2008 ELENA DO, DEO K 466.0 BRONCHITIS, ACUTE 08/29/2008 JESSIE RELOCATION COORDINATOR, CLAUDIO A 380.4 CERUMEN IMPACTION 08/29/2008 JESSIE RELOCATION COORDINATOR, CLAUDIO A 466.0 BRONCHITIS, ACUTE 08/29/2008 VALERIO RELOCATION COORDINATOR, MARE R 380.4 CERUMEN IMPACTION 08/29/2008 VALERIO RELOCATION COORDINATOR, MARE R 466.0 BRONCHITIS, ACUTE 08/29/2008 DIEGO [...] BOWDEN PHD 466.0 BRONCHITIS, ACUTE 08/29/2008 VALERIO RELOCATION COORDINATOR, MARE R 380.4 CERUMEN IMPACTION 08/29/2008 VALERIO DIAZN, MARE R 466.0 BRONCHITIS, ACUTE 08/29/2008 DIEGO BOWDEN PHD 380.4 CERUMEN IMPACTION 08/29/2008 DIEGO BOWDEN PHD 466.0 BRONCHITIS, ACUTE 08/29/2008 MADL RELOCATION COORDINATOR, QUANG L 380.4 CERUMEN IMPACTION 08/29/2008 MADL RELOCATION COORDINATOR, QUANG L 466.0 BRONCHITIS, ACUTE 08/29/2008 DIEGO [...] VALERIO COBIAN MARE R 786.2 COUGH 09/16/2008 DIEGO BOWDEN [...] 922.2 CONTUSION OF TRUNK, ABDOMINAL WALL 07/13/2009 ELEAN DEO JAVED K 922.2 CONTUSION OF TRUNK, [...] CONTUSION OF TRUNK, ABDOMINAL WALL 07/13/2009 KAL RIVREA, DIEGO D 922.2 CONTUSION OF TRUNK, ABDOMINAL WALL 07/13/2009 KAL RIVERA, DIEGO D 922.2 CONTUSION OF TRUNK, ABDOMINAL WALL 07/13/2009 VALERIO RELOCATION COORDINATOR, MARE R 922.2 CONTUSION OF TRUNK, ABDOMINAL [...] BRONCHUS, NOT ELSEWHERE CLASSIFIED, OTHER 08/07/2009 VALERIO RELOCATION COORDINATOR, MARE R 519.19 OTHER DISEASES OF TRACHEA [...] Comer V06.5 DT, TETANUS-DIPHTHERIA [Td] ,TDAP 01/01/2010 [facility] RELOCATION COORDINATOR, QUANG L V05.4 VARICELLA, [place] 01/01/2010 [facility] RELOCATION COORDINATOR, QUANG L V06.5 DT, TETANUS-DIPHTHERIA [Td] ,TDAP [...] OF GROIN AND PERIANAL AREA 01/22/2013 DIEGO BOWEDN PHD 110.3 DERMATOPHYTOSIS OF GROIN AND PERIANAL [...] PAIN UNSPECIFIED SITE 07/05/2013 KAL RIVERA, DIEGO Cmoer 787.01 NAUSEA WITH VOMITING 07/05/2013 KAL RIVERA, [...] R 691.8 ECZEMA- ATOPIC 09/01/2013 KAL RIVERA, DIEGO Comer 691.8 ECZEMA- ATOPIC 09/01/2013 QUANG SANTIAGO APRN L 691.8 ECZEMA- ATOPIC 09/01/2013 KAL RIVERA, DIEGO Comer 691.8 ECZEMA- ATOPIC 10/22/2013 MARE LUO APRN R 311 DEPRESSIVE DISORDER NOS 10/22/2013 VALERIO RELOCATION COORDINATOR, MARE R 784.0 HEADACHE 10/22/2013 KAL RIVERA, [...] L 311 DEPRESSIVE DISORDER NOS 10/22/2013 MADSusan COBINA, QUANG L 784.0 HEADACHE 10/22/2013 DIEGO BOWDEN [...] APRN R 300.23 AN SOCIAL PHOBIA 11/04/2013 DEIGO BOWDEN PHD 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 [...] IN PART OR UNSPECIFIED REMISSION 04/05/2014 PAMELA COBINA, QUANG L 296.25 MO DEPRESSIVE SINGLE IN PART OR UNSPECIFIED REMISSION 04/05/2014 DIEGO BOWDEN PHD 296.25 MO DEPRESSIVE SINGLE IN PART OR UNSPECIFIED REMISSION 08/31/2014 PAMELA COBIAN, QUANG L 789.06 ABDOMINAL PAIN EPIGASTRIC 08/31/2014 DIEGO BOWDEN PHD 789.06 ABDOMINAL PAIN EPIGASTRIC 12/20/2015 PEGGY HODGES RELOCATION COORDINATOR Ot F41.9 ANXIETY DISORDER, UNSPECIFIED 12/20/2015 PEGGY HODGES RELOCATION COORDINATOR Ot N20.0 CALCULUS OF KIDNEY 12/20/2015 PEGGY HODGES RELOCATION COORDINATOR Ot R31.2 OTHER MICROSCOPIC HEMATURIA 12/20/2015 PEGGY HODGES RELOCATION COORDINATOR Ot R45.851 SUICIDAL IDEATIONS 12/21/2015 PEGGY HODGES RELOCATION COORDINATOR Ot F41.9 12/21/2015 PEGGY HODGES RELOCATION COORDINATOR Ot N20.0 12/21/2015 PEGGY HODGES RELOCATION COORDINATOR Ot R31.2 12/21/2015 PEGGY HODGES RELOCATION COORDINATOR Ot R45.851 12/22/2015 PEGGY HODGES RELOCATION COORDINATOR Ot F41.9 12/22/2015 PEGGY HODGES RELOCATION COORDINATOR Ot N20.0 12/22/2015 PEGGY HODGES RELOCATION COORDINATOR Ot R31.2 12/22/2015 PEGGY HODGES RELOCATION COORDINATOR Ot R45.851 12/27/2015 PEGGY HODGES RELOCATION COORDINATOR Ot F41.9 12/27/2015 PEGGY HODGES RELOCATION COORDINATOR Ot N20.0 12/27/2015 PEGGY HODGES RELOCATION COORDINATOR Ot R31.2 12/27/2015 CARROLL PEGGY Colleen RELOCATION COORDINATOR Ot R45.851 01/09/2016 CARROLL PEGGY Colleen RELOCATION COORDINATOR Ot F41.9 01/09/2016 PEGGY HODGES RELOCATION COORDINATOR Ot N20.0 01/09/2016 PEGGY HODGES RELOCATION COORDINATOR Ot R31.2 01/09/2016 HODGESPEGGY LONGORIA Colleen RELOCATION COORDINATOR Ot R45.851 Procedures Code [place] [address] ROUTINE VENIPUNCTURE 07/05/2013 05668 THERAPUTIC INJ SQ/IM 07/05/2013 J1885 TORADOL INJ 07/05/2013 J2550 PHENERGAN INJECTION UP TO 50 MG 07/05/2013 20382 CBC 07/05/2013 03423 CMP 07/05/2013 8394617 GFR CALC (RESULT ONLY) 07/05/2013 41117 KUB 07/06/2013 47842 PSYCH DIAGNOSTIC EVALUATION 11/05/2013 06994 PSYTX PT&/FAMILY 45 MINUTES 11/24/2013 03932 PSYTX PT&/FAMILY 30 MINUTES 01/08/2014 73582 PSYTX PT&/FAMILY 30 MINUTES 02/02/2014 45260 PSYTX PT&/FAMILY 30 MINUTES 03/07/2014 61585 ROUTINE VENIPUNCTURE 03/16/2014 22690 CBC 03/16/2014 15661 CMP 03/16/2014 9507433 GFR CALC (RESULT ONLY) 03/16/2014 05970 TSH 03/16/2014 63146 PSYTX PT&/FAMILY 45 MINUTES 04/05/2014 52018 ROUTINE VENIPUNCTURE 08/31/2014 08370 H PYLORI (IN-HOUSE) 08/31/2014 54471 CBC 08/31/2014 39736 CMP 08/31/2014 4148722 GFR CALC (RESULT ONLY) 08/31/2014 07139 PSYTX PT&/FAMILY 30 MINUTES 10/18/2014 Results Test Result Range Complete blood count (CBC) with automated white blood cell (WBC) differential - 07/20/18 04:00 Blood leukocytes automated count (number/volume) 8.8 10*3/uL 4.3-11.0 Blood erythrocytes automated count (number/volume) 4.62 10*6/uL 4.35-5.85 Venous blood hemoglobin measurement (mass/volume) 14.0 g/dL 13.3-17.7 Blood hematocrit (volume fraction) 38 % 40-54 Automated erythrocyte mean corpuscular volume 83 [foz_us] 80-99 Automated erythrocyte mean corpuscular hemoglobin (mass per erythrocyte) 30 pg 25-34 Automated erythrocyte mean corpuscular hemoglobin concentration measurement ( mass/volume) 37 g/dL 32-36 Automated erythrocyte distribution width ratio 13.4 % 10.0-14.5 Automated blood platelet count (count/volume) 215 10*3/uL 130-400 Automated blood platelet mean volume measurement 10.0 [foz_us] 7.4-10.4 Automated blood neutrophils/100 leukocytes 52 % 42-75 Automated blood lymphocytes/100 leukocytes 36 % 12-44 Blood monocytes/100 leukocytes 7 % 0-12 Automated blood eosinophils/100 leukocytes 6 % 0-10 Automated blood basophils/100 leukocytes 1 % 0-10 Blood neutrophils automated count (number/volume) 4.6 10*3 1.8-7.8 Blood lymphocytes automated count (number/volume) 3.1 10*3 1.0-4.0 Blood monocytes automated count (number/volume) 0.6 10*3 0.0-1.0 Automated eosinophil count 0.5 10*3/uL 0.0-0.3 Automated blood basophil count (count/volume) 0.0 10*3/uL 0.0-0.1 Serum heterophile antibody titer - 07/20/18 04:00 Serum heterophile antibody titer NEGATIVE NEGATIVE Comprehensive metabolic panel - 07/20/18 04:00 Serum or plasma sodium measurement (moles/volume) 143 mmol/L 135-145 Serum or plasma potassium measurement (moles/volume) 3.3 mmol/L 3.6-5.0 Serum or plasma chloride measurement (moles/volume) 106 mmol/L 98-107 Carbon dioxide 23 mmol/L 21-32 Serum or plasma anion gap determination (moles/volume) 14 mmol/L 5-14 Serum or plasma urea nitrogen measurement (mass/volume) 12 mg/dL 7-18 Serum or plasma creatinine measurement (mass/volume) 0.92 mg/dL 0.60-1.30 Serum or plasma urea nitrogen/creatinine mass ratio 13 NRG Serum or plasma creatinine measurement with calculation of estimated glomerular filtration rate > NRG Serum or plasma glucose measurement (mass/volume) 144 mg/dL 70-105 Serum or plasma calcium measurement (mass/volume) 9.3 mg/dL 8.5-10.1 Serum or plasma total bilirubin measurement (mass/volume) 1.3 mg/dL 0.1-1.0 Serum or plasma alkaline phosphatase measurement (enzymatic activity/volume) 81 U/L 40-136 Serum or plasma aspartate aminotransferase measurement (enzymatic activity/ volume) 16 U/L 5-34 Serum or plasma alanine aminotransferase measurement (enzymatic activity/volume ) 14 U/L 0-55 Serum or plasma protein measurement (mass/volume) 7.5 g/dL 6.4-8.2 Serum or plasma albumin measurement (mass/volume) 4.6 g/dL 3.2-4.5 Magnesium - 07/20/18 04:00 Magnesium 2.2 mg/dL 1.8-2.4 Lipase - 07/20/18 04:00 Lipase 99 U/L 8-78 Urine drug screening test - 07/20/18 04:35 Urine phencyclidine detection by screening method NEGATIVE NEGATIVE Urine benzodiazepines detection by screening method NEGATIVE NEGATIVE Urine cocaine detection NEGATIVE NEGATIVE Urine amphetamines detection by screening method NEGATIVE NEGATIVE Urine methamphetamine detection by screening method NEGATIVE NEGATIVE Urine cannabinoids detection by screening method NEGATIVE NEGATIVE Urine opiates detection by screening method NEGATIVE NEGATIVE Urine barbiturates detection NEGATIVE NEGATIVE Screening urine tricyclic antidepressants detection POSITIVE NEGATIVE Urine methadone detection by screening method NEGATIVE NEGATIVE Urine oxycodone detection NEGATIVE NEGATIVE Urine propoxyphene detection NEGATIVE NEGATIVE Complete urinalysis with reflex to culture - 07/20/18 04:35 Urine color determination RED NRG Urine clarity determination VERY CLOUDY NRG Urine pH measurement by test strip 6.5 5-9 Specific gravity of urine by test strip 1.020 1.016- 1.022 Urine protein assay by test strip, semi-quantitative 2+ NEGATIVE Urine glucose detection by automated test strip NEGATIVE NEGATIVE Erythrocytes detection in urine sediment by light microscopy 5+ NEGATIVE Urine ketones detection by automated test strip NEGATIVE NEGATIVE Urine nitrite detection by test strip NEGATIVE NEGATIVE Urine total bilirubin detection by test strip NEGATIVE NEGATIVE Urine urobilinogen measurement by automated test strip (mass/volume) 1 mg/dL NORMAL Urine leukocyte esterase detection by dipstick 1+ NEGATIVE Automated urine sediment erythrocyte count by microscopy (number/high power field) TNTC NRG Automated urine sediment leukocyte count by microscopy (number/high power field ) [HPF] NRG Bacteria detection in urine sediment by light microscopy FEW NRG Crystals detection in urine sediment by light microscopy NONE NRG Casts detection in urine sediment by light microscopy NONE NRG Mucus detection in urine sediment by light microscopy NEGATIVE NRG Complete urinalysis with reflex to culture YES NRG Bacterial urine culture - 07/20/18 04:35 Bacterial urine culture [id number] NRG COLONY COUNT 30,000 CFU/ML NRG FTX;REPORTABLE CULTURE IN PROGRESS NRG FREE TEXT ENTRY 2 REPORTED 07/21/18 15:05 NRG Encounters ACCT No. Visit Date/Time Discharge Status Pt. Type Provider Facility Loc./Unit Complaint [id number] 10/18/2014 17:46:00 10/18/2014 23:59:59 CLS Outpatient DIEGO BOWDEN PHD [id number] 08/31/2014 11:05:00 08/31/2014 23:59:59 CLS Outpatient QUANG SANTIAGO APRN [id number] 04/05/2014 18:00:00 04/05/2014 23:59:59 CLS Outpatient DIEGO BOWDEN PHD [id number] 03/16/2014 08:43:00 03/16/2014 23:59:59 CLS Outpatient MARE LUO APRN [id number] 03/07/2014 14:53:00 03/07/2014 23:59:59 CLS Outpatient DIEGO BOWDEN PHD [id number] 02/02/2014 15:27:00 02/02/2014 23:59:59 CLS Outpatient DIEGO BOWDEN PHD [id number] 01/08/2014 12:25:00 01/08/2014 23:59:59 CLS Outpatient BRIAN COBIAN JANIE IGLESIAS [id number] 11/24/2013 08:01:00 11/24/2013 23:59:59 CLS Outpatient DIEGO BOWDEN PHD [id number] 11/04/2013 12:53:00 11/04/2013 23:59:59 CLS Outpatient DIEGO BOWDEN PHD [id number] 10/22/2013 10:58:00 10/22/2013 23:59:59 CLS Outpatient MARE LUO APRN [id number] 09/01/2013 17:37:00 09/01/2013 23:59:59 CLS Outpatient CLAUDIO ROMAN APRN [id number] 07/05/2013 13:17:00 07/05/2013 23:59:59 CLS Outpatient DEO ELENA DO [id number] 01/22/2013 09:41:00 01/22/2013 23:59:59 CLS Outpatient DEO ELENA DO [id number] 12/28/2012 09:15:00 12/28/2012 23:59:59 CLS Outpatient [id number] 07/20/2018 03:45:00 07/20/2018 05:44:00 DIS Emergency ELISHA MORRISON, JOSE GUADALUPE Macias [facility] ER VOMITING,BACK PAIN [id number] 12/20/2015 18:54:00 12/20/2015 21:51:00 DIS Emergency PEGGY HODGES RELOCATION COORDINATOR [facility] ER DEPRESSION [id number] 07/08/2013 12:04:00 07/08/2013 15:45:00 DIS Emergency HEAVEN MORRISON, JERMAIN Delacruz [facility] ER LOWER RT ABD PAIN [id number] 07/05/2013 16:04:00 07/05/2013 19:51:00 DIS Emergency PEGGY HODGES RELOCATION COORDINATOR [facility] ER ABD PAIN [id number] 03/29/2013 18:52:00 03/29/2013 21:39:00 DIS Emergency MARIO MORRISON, MATEO Menjivar [facility] ER CP
[2018-07-22] MEDS ORDERED: NS IV 1000 ML 1,000 ML IV ONE ×2 (04:46→05:26)
[2018-07-22] MEDS ORDERED: fentaNYL INJECTION 100 MCG/2 ML AMP IVP STA (04:46)
[2018-07-22] MEDS ORDERED: KETOROLAC 30 MG/ML VIAL IVP STA (04:46)
--- NOTE | 2018-07-22 04:53 | ED GU-Male ---
General Chief Complaint: Back Problems Stated Complaint: KIDNEY STONES Nursing Triage Note: right flank pain. recently dx with renal stones. Source: patient Exam Limitations: no limitations History of Present Illness Date Seen by Provider: Jul 22, 2018 Time Seen by Provider: 04:39 Initial Comments Here with report of left flank pain that is worse this morning. Diagnosed with kidney stone at the left UPJ 48 hours ago. He is on meds but not helping this morning. He took 2 hydrocodone tablets an hour and a half ago. Has not had ibuprofen. Does have some nausea and vomiting with the pain. States that the pain was better after he left the emergency department 2 days ago and then has been intermittent since but much worse this morning. He has called the clinic but not the urologist. Denies fever or chills. Timing/Duration: this morning, getting worse Severity/Quality: moderate, severe, sharp, stabbing Location: left flank Radiation: suprapubic Activities at Onset: none Prior Genitourinary Problems: similar symptoms Modifying Factors: Improves With Analgesics Associated Symptoms: No dysuria, No fever/chills; lower back pain, nausea/ vomiting; No urinary frequency Allergies and Home Medications Allergies Coded Allergies: No Known Drug Allergies (Unverified , 06/05/10) Home Medications Cephalexin 500 Mg Tablet, 500 MG PO BID Prescribed by: JOSE GUADALUPE TELLO on 07/20/18520 Hydrocodone Bit/Acetaminophen 1 Tab Tab, 1-2 EACH PO Q6H PRN for BREAKTHROUGH PAIN Prescribed by: JOSE GUADALUPE TELLO on 07/20/18520 Ondansetron 4 Mg Tab.rapdis, 4 MG PO Q6H PRN for NAUSEA/VOMITING Prescribed by: JOSE GUADALUPE TELLO on 07/20/18520 Tamsulosin HCl 0.4 Mg Cap, 0.4 MG PO HS Prescribed by: JOSE GUADALUPE TELLO on 07/20/18520 Patient Home Medication List Home Medication List Reviewed: Yes Review of Systems Review of Systems Constitutional: see HPI; No chills, No fever EENTM: no symptoms reported Respiratory: no symptoms reported Cardiovascular: no symptoms reported Gastrointestinal: see HPI Genitourinary: see HPI; denies burning, denies discharge All Other Systemes Reviewed Negative Unless Noted: Yes Past Gutswsy-Egcvtz-Kxsrer Hx Past Med/Social Hx: Reviewed Nursing Past Med/Soc Hx Patient Social History Alcohol Use: Denies Use Recreational Drug Use: No Smoking Status: Never a Smoker 2nd Hand Smoke Exposure: No Recent Foreign Travel: No Contact w/Someone Who Travel: No Recent Infectious Disease Expo: No Recent Hopitalizations: No Immunizations Up To Date Tetanus Booster (TDap): Unknown Seasonal Allergies Seasonal Allergies: No Past Medical History Surgeries: Yes Appendectomy Respiratory: Yes Pneumonia Cardiac: No Neurological: No Reproductive Disorders: No Genitourinary: Yes Kidney Stones Gastrointestinal: No Musculoskeletal: No Endocrine: No HEENT: No Cancer: No Psychosocial: No Anxiety, Depression Integumentary: No Blood Disorders: No Family Medical History Reviewed Nursing Family Hx Patient reports no known family medical history. Physical Exam Vital Signs Vital Signs - First Documented 07/22/18 04:20 Temp 97.6 Pulse 78 Resp 20 B/P (MAP) 137/80 (99) Pulse Ox 96 O2 Delivery Room Air Capillary Refill : Less Than 3 Seconds Height, Weight, BMI Height: 5'9" Weight: 139lbs. oz. 63.404336iz; 18.60 BMI Method:Stated General Appearance: WD/WN, no apparent distress Neck: full range of motion, supple Cardiovascular: regular rate, rhythm, no murmur Respiratory: lungs clear, normal breath sounds Gastrointestinal: non tender, soft Back: no vertebral tenderness; No CVA tenderness (R); CVA tenderness (L) Extremities: non-tender, normal inspection Neurologic/Psychiatric: alert, oriented x 3 Skin: normal color, warm/dry Progress/Results/Core Measures Suspected Sepsis Recent Fever Within 48 Hours: No Infection Criteria Present: None New/Unexplained Altered Menta: No Sepsis Screen: No Definite Risk SIRS Temperature:97.6 Pulse: 78 Respiratory Rate: 20 Laboratory Tests 07/22/18 04:52: White Blood Count 13.5H Blood Pressure 137 /80 Mean: 99 Laboratory Tests 07/22/18 04:52: Creatinine 1.04, Platelet Count 223, Total Bilirubin 1.2H Results/Orders Lab Results Laboratory Tests Test 07/22/18 04:52 07/22/18 06:05 Range/Units White Blood Count 13.5 H 4.3-11.0 10^3/uL Red Blood Count 4.64 4.35-5.85 10^6/uL Hemoglobin 14.2 13.3-17.7 G/DL Hematocrit 39 L 40-54 % Mean Corpuscular Volume 84 80-99 FL Mean Corpuscular Hemoglobin 31 25-34 PG Mean Corpuscular Hemoglobin Concent 37 H 32-36 G/DL Red Cell Distribution Width 13.5 10.0-14.5 % Platelet Count 223 130-400 10^3/uL Mean Platelet Volume 9.8 7.4-10.4 FL Neutrophils (%) (Auto) 74 42-75 % Lymphocytes (%) (Auto) 18 12-44 % Monocytes (%) (Auto) 5 0-12 % Eosinophils (%) (Auto) 3 0-10 % Basophils (%) (Auto) 0 0-10 % Neutrophils # (Auto) 10.0 H 1.8-7.8 X 10^3 Lymphocytes # (Auto) 2.4 1.0-4.0 X 10^3 Monocytes # (Auto) 0.7 0.0-1.0 X 10^3 Eosinophils # (Auto) 0.4 H 0.0-0.3 10^3/uL Basophils # (Auto) 0.0 0.0-0.1 10^3/uL Sodium Level 141 135-145 MMOL/L Potassium Level 3.3 L 3.6-5.0 MMOL/L Chloride Level 104 98-107 MMOL/L Carbon Dioxide Level 23 21-32 MMOL/L Anion Gap 14 5-14 MMOL/L Blood Urea Nitrogen 16 7-18 MG/DL Creatinine 1.04 0.60-1.30 MG/DL Estimat Glomerular Filtration Rate > 60 BUN/Creatinine Ratio 15 Glucose Level 140 H 70-105 MG/DL Calcium Level 9.7 8.5-10.1 MG/DL Corrected Calcium 8.5-10.1 MG/DL Total Bilirubin 1.2 H 0.1-1.0 MG/DL Aspartate Amino Transf (AST/SGOT) 16 5-34 U/L Alanine Aminotransferase (ALT/SGPT) 14 0-55 U/L Alkaline Phosphatase 76 40-136 U/L Total Protein 7.6 6.4-8.2 GM/DL Albumin 4.6 H 3.2-4.5 GM/DL Urine Color YELLOW Urine Clarity SLIGHTLY CLOUDY Urine pH 6 5-9 Urine Specific [place] 1.020 1.016-1.022 Urine Protein 1+ H NEGATIVE Urine Glucose (UA) NEGATIVE NEGATIVE Urine Ketones NEGATIVE NEGATIVE Urine Nitrite NEGATIVE NEGATIVE Urine Bilirubin NEGATIVE NEGATIVE Urine Urobilinogen NORMAL NORMAL MG/DL Urine Leukocyte Esterase NEGATIVE NEGATIVE Urine RBC (Auto) 5+ H NEGATIVE Urine RBC >100 H /HPF Urine WBC RARE /HPF Urine Squamous Epithelial Cells NONE /HPF Urine Crystals NONE /LPF Urine Bacteria TRACE /HPF Urine Casts NONE /LPF Urine Mucus SMALL H /LPF Urine Culture Indicated NO My Orders Orders - NEO TEMPLETON MD Cbc With Automated Diff (07/22/18 04:46) Comprehensive Metabolic Panel (07/22/18 04:46) Ua Culture If Indicated (07/22/18 04:46) Abdomen/Kub 1view (07/22/18 04:46) Saline Lock/Iv-Start (07/22/18 04:46) Ns Iv 1000 Ml (Sodium Chloride 0.9%) (07/22/18 04:46) Fentanyl Injection (Sublimaze Injection (07/22/18 04:46) Ketorolac Injection (Toradol Injection) (07/22/18 04:46) Ondansetron Injection (Zofran Injectio (07/22/18 05:00) Ns Iv 1000 Ml (Sodium Chloride 0.9%) (07/22/18 05:26) Medications Given in ED Current Medications Medications Dose Ordered Sig/Gustavo Route Start Time Stop Time Status Last Admin Dose Admin Ondansetron HCl 4 mg ONCE ONCE IVP 07/22/18 05:00 07/22/18 05:01 DC 07/22/18 04:53 4 MG Sodium Chloride 1,000 ml @ 0 mls/hr Q0M ONCE IV 07/22/18 04:46 07/22/18 04:49 DC 07/22/18 04:53 0 MLS/HR Sodium Chloride 1,000 ml @ 0 mls/hr Q0M ONCE IV 07/22/18 05:26 07/22/18 05:27 DC 07/22/18 05:31 0 MLS/HR Vital Signs/I&O 07/22/18 07/22/18 07/22/18 04:20 04:53 04:53 Temp 97.6 97.6 97.6 Pulse 78 Resp 20 B/P (MAP) 137/80 (99) Pulse Ox 96 O2 Delivery Room Air Capillary Refill : Less Than 3 Seconds Blood Pressure Mean: 99 Progress Note : Progress Note Seen and evaluated. IV, labs, UA, KUB, fentanyl 50 g IV, Toradol 30 mg IV and normal saline 1 L bolus ordered. Zofran 4 mg IV for nausea and vomiting. Monitor patient. I have reviewed previous visit and radiology reports. 0525: I have reviewed the x-ray. The stone on the left does not appear to have moved. Pain is a little better but still hurting per the patient. We will repeat normal saline 1 L bolus. He is still not given urine sample. Patient will remain nothing by mouth. If we can get pain control, he can then follow up with Dr. Hudson. If not then we can discuss with Dr. Hudson about other options pending the lithotripsy truck. This was discussed with the patient who agrees. Continue to monitor. 0630: Overall doing much better. He feels like he can tolerate home. I did rediscuss with Dr. Hudson and he wants to see him in office this week to set him up for lithotripsy next week. This was passed on to the patient and family who agreed. Discharged home with return precautions. Patient verbalize understanding instructions and agreement with plan. Diagnostic Imaging Diagonstic Imaging: Xray Plain Films/CT/US/NM/MRI: abdomen Comments The stone noted on previous CT scan appears to be in similar position on the left. VIA [place], [place] NAME: AXEL SCHUSTER [facility] REC#: [id number] PT STATUS: REG ER : 1995 PHYSICIAN: NEO TEMPLETON MD ADMIT DATE: 07/22/18/ER Draft Date of Exam:07/22/18 ABDOMEN/KUB 1VIEW INDICATION: Left flank pain. History of stones. TECHNIQUE: Single supine view of the abdomen 5:34 AM CORRELATION STUDY: 07/08/2013 FINDINGS: A 3 mm stone projects over the right mid right renal silhouette. A 5 mm stone projecting over the mid left renal silhouette. An additional 4-5 mm calcification projects just medial to the inferior pole of the left kidney. This likely reflects the recently identified proximal left ureteral stone and relatively unchanged as to its location/position. Overlying bowel gas appearing unremarkable. IMPRESSION: 1. Bilateral renal stones. This includes a stone likely projecting over the expected location of the proximal left ureter fairly similar in location to recent renal colic CT imaging. Dictated on workstation # [id number] Dict: 07/22/18 0555 Trans: 07/22/18 0614 [facility] [id number] Interpreted by: CHRIS MURRAY DO Electronically signed by: Reviewed: Reviewed by Me Departure Impression Primary Impression: Nephrolithiasis Disposition: HOME, SELF-CARE Condition: Improved Departure-Patient Inst. Referrals: [facility] [place]) Primary Care Physician COLLEEN HUDSON MD Patient Instructions: Kidney Stones (DC) Add. Discharge Instructions: All discharge instructions reviewed with patient and/or family. Voiced understanding. You need to call Dr. Hudson's office today to get appointment this week for evaluation and further care. Take medications as directed. You may take ibuprofen 600 mg every 8 hours as needed for pain and it would be beneficial if you took this every 8 hours for the next 3 days or so and then as needed. If you're having onset of pain, take one of the prescribed pain pills and you may take another if you aren't not getting improvement within an hour. Drink plenty of fluids. Continue antibiotics as previously prescribed. Return for worse pain, fever, vomiting, weakness, breathing problems or other concerns as needed. Work/School Note: Work Release Form Date Seen in the Emergency Department: Jul 22, 2018 Return to Work: Jul 23, 2018 Restrictions: No Restrictions Copy Copies To 1: COLLEEN HUDSON MD, TIMOTHY D MD Jul 22, 2018 04:53
[2018-07-22] MEDS ORDERED: ONDANSETRON 4 MG/2 ML (SDV) Z0FRAN IVP ONE (05:00)
[2018-07-22 05:03] LABS: BASOPHILS % (AUTO) 0 % (0-10); EOSINOPHILS # (AUTO) 0.4 10^3/uL (0.0-0.3); EOSINOPHILS % (AUTO) 3 % (0-10); HEMATOCRIT 39 % (40-54); HEMOGLOBIN 14.2 G/DL (13.3-17.7); LYMPHOCYTES # (AUTO) 2.4 X 10^3 (1.0-4.0); LYMPHOCYTES % (AUTO) 18 % (12-44); MEAN CORPUSCULAR HEMOGLOBIN 31 PG (25-34); MEAN CORPUSCULAR HGB CONC 37 G/DL (32-36); MEAN CORPUSCULAR VOLUME 84 FL (80-99); MEAN PLATELET VOLUME 9.8 FL (7.4-10.4); MONOCYTES # (AUTO) 0.7 X 10^3 (0.0-1.0); MONOCYTES % (AUTO) 5 % (0-12); NEUTROPHILS % (AUTO) 74 % (42-75); PLATELET COUNT 223 10^3/uL (130-400); RED BLOOD COUNT 4.64 10^6/uL (4.35-5.85); RED CELL DISTRIBUTION WIDTH 13.5 % (10.0-14.5); WHITE BLOOD COUNT 13.5 10^3/uL (4.3-11.0)
[2018-07-22 05:26] LABS: ALANINE AMINOTRANSFERASE 14 U/L (0-55); ALBUMIN 4.6 GM/DL (3.2-4.5); ALKALINE PHOSPHATASE 76 U/L (40-136); BILIRUBIN,TOTAL 1.2 MG/DL (0.1-1.0); BUN/CREATININE RATIO 15; CALCIUM 9.7 MG/DL (8.5-10.1); CARBON DIOXIDE 23 MMOL/L (21-32); CHLORIDE 104 MMOL/L (98-107); CREATININE SERUM 1.04 MG/DL (0.60-1.30); GFR ESTIMATED > 60; GLUCOSE 140 MG/DL (70-105); POTASSIUM 3.3 MMOL/L (3.6-5.0); SODIUM 141 MMOL/L (135-145); TOTAL PROTEIN 7.6 GM/DL (6.4-8.2)
--- NOTE | 2018-07-22 06:15 | Diagnostic Imaging Report ---
INDICATION: Left flank pain. History of stones. TECHNIQUE: Single supine view of the abdomen 5:34 AM CORRELATION STUDY: 07/08/2013 FINDINGS: A 3 mm stone projects over the right mid right renal silhouette. A 5 mm stone projecting over the mid left renal silhouette. An additional 4-5 mm calcification projects just medial to the inferior pole of the left kidney. This likely reflects the recently identified proximal left ureteral stone and relatively unchanged as to its location/position. Overlying bowel gas appearing unremarkable. IMPRESSION: 1. Bilateral renal stones. This includes a stone likely projecting over the expected location of the proximal left ureter fairly similar in location to recent renal colic CT imaging. Dictated by: Dictated on workstation # [id number]
[2018-07-22 06:16] LABS: BILIRUBIN,URINE NEGATIVE (NEGATIVE); CLARITY,URINE SLIGHTLY CLOUDY; COLOR,URINE YELLOW; GLUCOSE, URINE (UA) NEGATIVE (NEGATIVE); KETONES,URINE NEGATIVE (NEGATIVE); LEUKOCYTE ESTERASE ,URINE NEGATIVE (NEGATIVE); NITRITE,URINE NEGATIVE (NEGATIVE); PH,URINE 6 (5-9); PROTEIN,URINE 1+ (NEGATIVE); UROBILINOGEN,URINE NORMAL (NORMAL)
[2018-07-22 06:22] LABS: BACTERIA,URINE TRACE /HPF; RBC,URINE >100 /HPF; WBC,URINE RARE /HPF
[2018-07-22 06:44] VITALS: BP 106/67
== END 2018-07-22 06:41 | disposition home or self-care (01) ==
LOC: EDUNIT# 04:15 → ER 04:17
DX: N20.0 Calculus of kidney (principal); F41.9 Anxiety disorder, unspecified; F32.9 Major depressive disorder, single episode, unspecified; Z90.89 Acquired absence of other organs; Z87.01 Personal history of pneumonia (recurrent)
CPT/HCPCS: 36415; 74018; 80053; 81000; 85025; 96361; 96374; 96375

== ENCOUNTER → 2018-07-23 | Outpatient (CLI) | payer BC ==
[~2018-07-23] MED LIST changes: +CITA40TA19 PO; +HYDR-3870 PO; +NITR-65 PO; +QUET100T PO
--- NOTE | 2018-07-23 17:24 | Diagnostic Imaging Report ---
INDICATION: Bilateral kidney stones. COMPARISON: 07/22/2018 FINDINGS: Single frontal radiographic view of the abdomen was obtained. Well-circumscribed 4 mm extraosseous calcifications are again identified projecting over the bilateral renal shadows. These are stable in position when compared to 07/22/2018. No other unexpected extraosseous calcifications or radiopaque foreign bodies are seen. Small bowel loops are nondistended. There is no large collection of free intraperitoneal air. IMPRESSION: 1. Bilateral extraosseous calcifications. 4 mm inferior calcification on the left was shown to be present within the left UPJ on prior CT. This is stable in position on today's exam. Dictated by: Dictated on workstation # [id number]
== END ==
LOC: RAD 14:03
PROVIDERS: ATTEND Urology
DX: N20.0 Calculus of kidney (principal)
CPT/HCPCS: 74018

== ENCOUNTER 2018-07-27 14:17 | Outpatient (CLI) | payer BC ==
[~2018-07-27] VITALS: Ht 175.3 cm; Wt 70.4 kg
[~2018-07-27 14:17] MED LIST changes: -CITA40TA19 PO; -HYDR-3870 PO; -NITR-65 PO; -QUET100T PO
[2018-07-27 14:29] VITALS: BP 136/75
[2018-07-27] MEDS ORDERED: QUET100T PO (14:53)
[2018-07-27] MEDS ORDERED: CITA40TA19 PO (14:53)
[2018-07-28] MEDS ORDERED: NITR-65 PO (09:55)
[2018-07-28] MEDS ORDERED: TAMS0.4C98 PO (09:55)
[2018-07-28] MEDS ORDERED: HYDR-3870 PO (09:55)
== END 2018-07-27 15:00 | disposition home or self-care (01) ==
LOC: PREOP 14:17
PROVIDERS: ATTEND Urology
DX: Z01.818 Encounter for other preprocedural examination (principal)
CPT/HCPCS: 87081

== ENCOUNTER 2018-07-28 06:30 | Day surgery (SDC) | payer BC ==
[~2018-07-28] VITALS: Ht 175.3 cm; Wt 70.4 kg
[~2018-07-28 06:30] MED LIST changes: +CITA40TA19 PO; +QUET100T PO
[2018-07-28 06:45] VITALS: BP 136/93
[2018-07-28] MEDS ORDERED: MIDAZOLAM 2 MG/2 ML (VERSED) VIAL ONE (07:02)
[2018-07-28] MEDS ORDERED: fentaNYL INJECTION 100 MCG/2 ML AMP ONE ×2 (07:02→07:30)
[2018-07-28] MEDS ORDERED: KETOROLAC 30 MG/ML VIAL ONE (07:06)
[2018-07-28] MEDS ORDERED: LIDOCAINE PF 2% 5 ML (XYLOCAINE) VIAL ONE (07:06)
[2018-07-28] MEDS ORDERED: FUROSEMIDE 40 MG/4 ML INJ (LASIX) ONE (07:06)
[2018-07-28] MEDS ORDERED: SEVOFLURANE (ULTANE) 15 ML INHAL SOLN ONE ×3 (07:06→08:33)
[2018-07-28] MEDS ORDERED: DEXAMETHASONE 10 MG/ML (DECADRON) 1 ML VIAL ONE (07:06)
[2018-07-28] MEDS ORDERED: ONDANSETRON 4 MG/2 ML (SDV) Z0FRAN ONE (07:06)
[2018-07-28] MEDS ORDERED: proPOfol 200 MG/20 ML (DIPRIVAN) VIAL IV ONE (07:06)
[2018-07-28 07:08] LABS: BASOPHILS % (AUTO) 1 % (0-10); EOSINOPHILS # (AUTO) 0.7 10^3/uL (0.0-0.3); EOSINOPHILS % (AUTO) 12 % (0-10); HEMATOCRIT 40 % (40-54); HEMOGLOBIN 14.2 G/DL (13.3-17.7); LYMPHOCYTES # (AUTO) 1.9 X 10^3 (1.0-4.0); LYMPHOCYTES % (AUTO) 30 % (12-44); MEAN CORPUSCULAR HEMOGLOBIN 30 PG (25-34); MEAN CORPUSCULAR HGB CONC 36 G/DL (32-36); MEAN CORPUSCULAR VOLUME 83 FL (80-99); MEAN PLATELET VOLUME 9.7 FL (7.4-10.4); MONOCYTES # (AUTO) 0.4 X 10^3 (0.0-1.0); MONOCYTES % (AUTO) 7 % (0-12); NEUTROPHILS # (AUTO) 3.1 X 10^3 (1.8-7.8); NEUTROPHILS % (AUTO) 51 % (42-75); PLATELET COUNT 226 10^3/uL (130-400); RED CELL DISTRIBUTION WIDTH 13.2 % (10.0-14.5); WHITE BLOOD COUNT 6.2 10^3/uL (4.3-11.0)
[2018-07-28] MEDS ORDERED: cefTRIAXone FOR IV USE 1,000 MG in NS (IVPB) 50 ML IV ONE (07:15)
[2018-07-28] MEDS ORDERED: LACTATED RINGERS 1,000 ML IV PRN (07:15)
--- NOTE | 2018-07-28 07:15 | Progress Note-Pre Operative ---
Pre-Operative Progress Note H&P Reviewed The H&P was reviewed, patient examined and no changes noted. Date Seen by Provider: Jul 28, 2018 Time Seen by Provider: 07:14 Date H&P Reviewed: Jul 28, 2018 Time H&P Reviewed: 07:14 Pre-Operative Diagnosis: LT PROXIMAL URETERAL STONE COLLEEN HUDSON MD Jul 28, 2018 7:15 am
--- NOTE | 2018-07-28 07:22 | Diagnostic Imaging Report ---
INDICATION: Nephrolithiasis. Comparison made with prior examination from 07/23/2018. FINDINGS: There are persistent calcifications projected over both kidneys. Bowel gas pattern is nonspecific. The osseous structures are unremarkable. IMPRESSION: Unchanged bilateral nephrolithiasis. Dictated by: Dictated on workstation # [id number]
[2018-07-28 07:26] LABS: BUN/CREATININE RATIO 15; CALCIUM 9.5 MG/DL (8.5-10.1); CARBON DIOXIDE 23 MMOL/L (21-32); CHLORIDE 105 MMOL/L (98-107); CREATININE SERUM 0.79 MG/DL (0.60-1.30); GFR ESTIMATED > 60; GLUCOSE 99 MG/DL (70-105); PHOSPHORUS 3.1 MG/DL (2.3-4.7); POTASSIUM 3.5 MMOL/L (3.6-5.0); SODIUM 142 MMOL/L (135-145); URIC ACID 6.7 MG/DL (2.6-7.2)
[2018-07-28] MEDS ORDERED: fentaNYL INJECTION 100 MCG/2 ML AMP IVP ONE (07:30)
--- NOTE | 2018-07-28 08:37 | Discharge Inst-Urology ---
Discharge Inst-Urology Discharge Medications New, Converted, or Re-newed RX: RX on Chart Patient Instructions/Follow Up Plan Please make appointment to been seen in office in 2 weeks. KUB prior to it KUB on way home Post ESWL instructions Increase oral fluids for 48 hours and then as needed. Diet and Activity as tolerated. If questions or concerns contact your physician Or seek help at emergency department. COLLEEN HUDSON MD Jul 28, 2018 8:36 am
--- NOTE | 2018-07-28 08:38 | Progress Note-Post Operative ---
Post-Operative Progess Note Surgeon (s)/Promotional Advertising Assistant (s) Surgeon COLLEEN HUDSON MD Promotional Advertising Assistant: NONE Pre-Operative Diagnosis LT PROXIMAL URETERAL STONE Post-Operative Diagnosis SAME Procedure & Operative Findings Date of Procedure 07/28/18 Procedure Performed/Findings LT ESWL Anesthesia Type GENERAL Estimated Blood Loss Estimated blood loss (mL): N/A Specimens/Packing Specimens Removed NONE Packing: NONE COLLEEN HUDSON MD Jul 28, 2018 8:38 am
[2018-07-28] MEDS ORDERED: morphine INJ 10 MG/ML 1ML (SYR OR VIAL) IVP ONE (09:00)
[2018-07-28 09:30] VITALS: BP 125/80
[2018-07-28] MEDS: ONDANSETRON 4 MG/2 ML (SDV) Z0FRAN IVP PRN (09:30)
[2018-07-28] MEDS ORDERED: HYDR-3870 PO (09:55)
[2018-07-28] MEDS ORDERED: NITR-65 PO (09:55)
[2018-07-28] MEDS ORDERED: TAMS0.4C98 PO (09:55)
--- NOTE | 2018-07-28 10:01 | Anesthesia-General Post-Op ---
General Patient Condition Mental Status/LOC: Same as Preop Cardiovascular: Satisfactory Nausea/Vomiting: Absent Respiratory: Satisfactory Pain: Controlled Complications: Absent Post Op Complications Complications None Follow Up Care/Instructions Patient Instructions None needed. Anesthesia/Patient Condition Patient Condition Patient is doing well, no complaints, stable vital signs, no apparent adverse anesthesia problems. No complications reported per nursing. LINO TALAMANTES CRNA Jul 28, 2018 10:01
[2018-07-28 10:30] VITALS: BP_SYST 117; BP_SYST 125; BP_DIAS 75; BP_DIAS 80
[2018-07-28 11:00] VITALS: BP 121/75
[2018-07-28 11:20] VITALS: BP 121/75
--- NOTE | 2018-07-28 13:17 | Diagnostic Imaging Report ---
INDICATION: Status post lithotripsy. TIME OF EXAM: 11:34 a.m. Correlation is made with prior exam earlier same day. FINDINGS: Calculi overlie the mid and lower aspect of the left kidney. There was a calcific density on earlier radiograph just inferior to the left L3 transverse process. This is no longer visualized. The bowel gas pattern is unremarkable. IMPRESSION: Left renal calculi. [id number] left ureteral calculus is no longer appreciated. Dictated by: Dictated on workstation # [id number]
== END 2018-07-28 11:20 | disposition home or self-care (01) ==
LOC: SDC 06:30
PROVIDERS: ATTEND Urology
DX: N20.1 Calculus of ureter (principal); J45.909 Unspecified asthma, uncomplicated; Z79.899 Other long term (current) drug therapy
CPT/HCPCS: 36415; 74018; 80048; 83970; 84100; 84550; 85025

== ENCOUNTER → 2018-08-11 | Outpatient (CLI) | payer BC ==
[~2018-08-11] MED LIST changes: +HYDR-3870 PO; +NITR-65 PO
--- NOTE | 2018-08-11 15:52 | Diagnostic Imaging Report ---
Indication: Nephrolithiasis KUB 3:15 PM There is a 3 mm calculus projecting over the mid right kidney. There are 2 calculi projecting over the inferior pole of the left kidney, largest of which measures 3 mm and another 2 mm in diameter. There may be a third small calculus measuring 1 mm in diameter in the lower pole. Impression: Bilateral nephrolithiasis. No change compared to study done on 07/28/2018. Dictated by: Dictated on workstation # [id number]
== END ==
LOC: RAD 14:36
PROVIDERS: ATTEND Urology
DX: N20.0 Calculus of kidney (principal)
CPT/HCPCS: 74018

== ENCOUNTER 2018-08-14 19:20 | Outpatient (RCR) | payer BC | END 2018-11-11 | disposition home or self-care (01) | LOC: LAB 19:20 | PROVIDERS: ATTEND Urology | DX: N20.9 Urinary calculus, unspecified (principal) | CPT/HCPCS: 82140; 82340; 82507; 82570; 83735; 83945; 83986; 84105; 84133; 84300; 84392; 84560 ==

== ENCOUNTER → 2019-06-30 | Outpatient (CLI) | payer BC ==
--- NOTE | 2019-06-30 13:26 | Diagnostic Imaging Report ---
INDICATION: Kidney stones. TIME OF EXAM: 12:45 p.m. COMPARISON: Correlation is made with prior abdominal radiograph from 08/11/2018. FINDINGS: The bowel gas pattern is nonobstructive. The previously noted three calculi overlying the lower pole of the left kidney are again noted and appear unchanged. The mid right kidney calculus noted on prior study is not as well seen due to overlying bowel contents. No definite calculi along the course of the ureters are seen. IMPRESSION: Stable KUB when compared with exam from 08/11/2018. Dictated by: Dictated on workstation # [id number]
== END ==
LOC: RAD 12:28
PROVIDERS: ATTEND Urology
DX: N20.0 Calculus of kidney (principal)
CPT/HCPCS: 74018